=== PATIENT | male | born 1970 | race Caucasian/White ===

== ENCOUNTER 2017-02-06 04:10 | Emergency (ER) | payer MEDICARE, MEDICAID ==
[2017-02-06 06:13] LABS: ANION GAP 15 (5-19); BLOOD UREA NITROGEN 17 mg/dL (7-20); CALCIUM 9.3 mg/dL (8.4-10.2); CARBON DIOXIDE 24 mmol/L (22-30); CHLORIDE 108 mmol/L (98-107); GLUCOSE 109 mg/dL (75-110); POTASSIUM 3.8 mmol/L (3.6-5.0); SODIUM 146.9 mmol/L (137-145)
--- NOTE | 2017-02-06 07:51 | ER Document Report ---
ED General - General Chief Complaint: ETOH Abuse Stated Complaint: POSSIBLE INTOXICATION TRAVEL OUTSIDE OF THE [place] IN LAST 30 DAYS: No - HPI Patient complains to provider of: alcohol intoxication. Notes: Patient is coming in for acute alcohol intoxication. Patient was escorted to the ER by local law enforcement. Otherwise patient is resting comfortably upon my evaluation. Patient has no complaints at this time. Arousable ANO 3. Past Medical History - Social History Smoking Status: Current Every Day Smoker Chew tobacco use (# tins/day): No Frequency of alcohol use: Heavy Drug Abuse: None Family History: Reviewed & Not Pertinent Patient has suicidal ideation: No Patient has homicidal ideation: No Renal/ Medical History: Denies: Hx Peritoneal Dialysis Review of Systems - Review of Systems Constitutional: No symptoms reported EENT: No symptoms reported Cardiovascular: No symptoms reported Respiratory: No symptoms reported Gastrointestinal: No symptoms reported Genitourinary: No symptoms reported Male Genitourinary: No symptoms reported Musculoskeletal: No symptoms reported Skin: No symptoms reported Hematologic/Lymphatic: No symptoms reported Neurological/Psychological: No symptoms reported Physical Exam - Vital signs Vitals: Temp Pulse Resp BP Pulse Ox 97.5 F 56 L 18 155/90 H 99 02/06/17 04:23 02/06/17 04:23 02/06/17 04:23 02/06/17 04:23 02/06/17 04:23 Interpretation: Normal - General General appearance: Appears well, Alert - HEENT Head: Normocephalic, Atraumatic Eyes: Normal Pupils: PERRL - Respiratory Respiratory status: No respiratory distress Chest status: Nontender Breath sounds: Normal Chest palpation: Normal - Cardiovascular Rhythm: Regular Heart sounds: Normal auscultation Murmur: No - Abdominal Inspection: Normal Distension: No distension Bowel sounds: Normal Tenderness: Nontender Organomegaly: No organomegaly - Back Back: Normal, Nontender - Extremities General upper extremity: Normal inspection, Nontender, Normal color, Normal ROM , Normal temperature General lower extremity: Normal inspection, Nontender, Normal color, Normal ROM , Normal temperature, Normal weight bearing. No: Billy's sign - Neurological Neuro grossly intact: Yes Cognition: Normal Orientation: AAOx4 Joan Coma Scale Eye Opening: Spontaneous [place] Coma Scale Verbal: Oriented [place] Coma Scale Motor: Obeys Commands Joan Coma Scale Total: 15 Speech: Normal Motor strength normal: LUE, RUE, LLE, RLE Sensory: Normal - Psychological Associated symptoms: Normal affect, Normal mood - Skin Skin Temperature: Warm Skin Moisture: Dry Skin Color: Normal Course - Re-evaluation Re-evalutation: 02/06/17 15:07 Patient was apparently brought to the ER for acute alcohol intoxication. Currently this time patient is ANO 3 and appears to be clinically sober able to make medical decisions has no complaints will be discharged home - Vital Signs Vital signs: Temp Pulse Resp BP Pulse Ox 97 F L 59 L 18 150/93 H 99 02/06/17 07:57 02/06/17 07:57 02/06/17 07:57 02/06/17 07:57 02/06/17 07:57 - Laboratory Result Diagrams: 02/06/17 05:53 Laboratory results interpreted by me: 02/06/17 05:53 Sodium 146.9 H Chloride 108 H Discharge - Discharge Clinical Impression: Alcohol use Condition: Good Disposition: HOME, SELF-CARE Instructions: Alcohol Withdrawl ([facility]), Acute Alcohol Intoxication ([facility]), Chronic Alcoholism ([facility]) Additional Instructions: Follow-up with resources provided. Referrals: [facility] [Provider Group] - Follow up as needed
[2017-02-06 07:58] VITALS: BP 150/93
== END 2017-02-06 07:58 | disposition home or self-care (01) ==
LOC: ER 04:10
DX: F10.120 Alcohol abuse with intoxication, uncomplicated (principal); F17.200 Nicotine dependence, unspecified, uncomplicated
CPT/HCPCS: 36415; 80048; 99284

== ENCOUNTER → 2017-06-10 | Outpatient (CLI) | payer BC, MEDICARE, MEDICAID ==
[2017-06-10 09:19] LABS: ANION GAP 10 (5-19); BLOOD UREA NITROGEN 17 mg/dL (7-20); CALCIUM 9.7 mg/dL (8.4-10.2); CARBON DIOXIDE 29 mmol/L (22-30); CHLORIDE 102 mmol/L (98-107); GLUCOSE 101 mg/dL (75-110); MAGNESIUM 2.1 mg/dL (1.6-2.3); POTASSIUM 4.7 mmol/L (3.6-5.0); SODIUM 141.2 mmol/L (137-145)
[2017-06-10 10:32] LABS: HEMATOCRIT 46.3 % (37.9-51.0); HEMOGLOBIN 16.1 g/dL (13.5-17.0); MEAN CORPUSCULAR HEMOGLOBIN 31.1 pg (27.0-33.4); MEAN CORPUSCULAR HGB CONC 34.9 g/dL (32.0-36.0); MEAN CORPUSCULAR VOLUME 89 fl (80-97); RED CELL DISTRIBUTION WIDTH 13.5 % (11.5-14.0); WHITE BLOOD COUNT 8.3 10^3/uL (4.0-10.5)
[2017-06-10 10:37] LABS: ALANINE AMINOTRANSFERASE 26 U/L (21-72); ALBUMIN 4.2 g/dL (3.5-5.0); ALKALINE PHOSPHATASE 71 U/L (38-126); ASPARTATE AMINO TRANSFERASE 21 U/L (17-59); BILIRUBIN,DIRECT 0.3 mg/dL (0.0-0.4); BILIRUBIN,TOTAL 0.6 mg/dL (0.2-1.3); CHOLESTEROL 120.79 mg/dL (0-200); Direct HDL 41 mg/dL (>40); TOTAL PROTEIN 6.8 g/dL (6.3-8.2); TRIGLYCERIDES 63 mg/dL (<150)
[2017-06-10 10:48] LABS: DIRECT LDL 67 mg/dL (<100)
[2017-06-10 11:11] LABS: THYROID STIMULATING HORMONE 1.4 uIU/mL (0.47-4.68)
== END ==
LOC: OD 08:06
PROVIDERS: ATTEND Internal Medicine Cardiovascular Disease
DX: Z79.899 Other long term (current) drug therapy (principal); R00.1 Bradycardia, unspecified; E66.01 Morbid (severe) obesity due to excess calories; E55.9 Vitamin D deficiency, unspecified; I10 Essential (primary) hypertension
CPT/HCPCS: 36415; 80048; 80061; 80076; 82306; 83036; 83735; 84439; 84443; 85027

== ENCOUNTER → 2017-11-16 | Outpatient (CLI) | payer MEDICARE | LOC: OD 12:30 | PROVIDERS: ATTEND Otolaryngology | DX: J30.9 Allergic rhinitis, unspecified (principal) | CPT/HCPCS: 36415; 82785 ==

== ENCOUNTER → 2017-11-26 | Outpatient (CLI) | payer BC, MEDICARE ==
--- NOTE | 2017-11-26 14:07 | RADIOLOGY REPORT (SQ) ---
EXAM DESCRIPTION: CT SINUSES FOR ENT COMPLETED DATE/TIME: 11/26/2017 10:03 am REASON FOR STUDY: I70.29XA OTHER EFFECTS OF HIGH ALTITUDE, INITIAL ENCOUNTER T70.29XA OTHER EFFECTS OF HIGH ALTITUDE, INITIAL ENCOUNTER COMPARISON: None. TECHNIQUE: Noncontrast scanning through the paranasal sinuses using bone algorithm. Reconstructed MPR images reviewed. All images stored on PACS. Images acquired for image guided surgery. All CT scanners at this facility use dose modulation, iterative reconstruction, and/or weight based d osing when appropriate to reduce radiation dose to as low as reasonably achievable (ALARA). [facility]: Dose Right [facility]: CareDose [facility]: Dose Right [facility]: Teradose 4D [facility]: [place] RADIATION DOSE: 47 mGy. FINDINGS: NASAL PASSAGES: Clear. No polyps or masses. OSTEOMEATAL UNITS AND NASOFRONTAL DUCTS: Mucous membrane thickening bilateral maxillary outlets on co maggie images 96-108. MAXILLARY SINUSES: Well-pneumatized and clear. ETHMOID SINUSES: Well-pneumatized and clear. SPHENOID SINUSES: Well-pneumatized and clear. No sphenoethmoid air cells or pneumatized pterygoid rec ess. No pneumatized dorsal sella. FRONTAL SINUSES: Well-pneumatized and clear. There is mucous membrane thickening at the fronto ethmo id junctions bilaterally. Incidental finding of a 4.5 mm right frontal osteoma coronal image 98 MASTOID AIR CELLS: Mild right, moderate left mastoid air cell fluid. Minimal fluid in the left at th e tympanum between the ossicles and scutum. No bony erosions. On the right side, the middle ear is clear. ORBITS: Normal and symmetrical. NASAL SEPTUM: Minimal right nasal septal deviation No nasal septal spurs. TEMPOROMANDIBULAR JOINTS: Normal. TURBINATES: No pneumatized turbinates. MUCOCELE: No. OTHER: Brain parenchyma in the field of view is unremarkable. IMPRESSION: NO EVIDENCE OF ACUTE SINUSITIS. Mucous membrane thickening in the maxillary sinus outle ts and fronto ethmoid junctions bilaterally. TECHNICAL DOCUMENTATION: JOB ID: [id number] Quality ID # [id number]: Final reports with documentation of one or more dose reduction techniques (e.g., Au tomated exposure control, adjustment of the mA and/or kV according to patient size, use of iterative reconstruction technique) 2010 [employer]- All Rights Reserved
== END ==
LOC: RAD 09:45
PROVIDERS: ATTEND Otolaryngology
DX: T70.29XA Other effects of high altitude, initial encounter (principal); J30.9 Allergic rhinitis, unspecified
CPT/HCPCS: 70486

== ENCOUNTER 2018-01-04 09:00 | Day surgery (SDC) | payer BC, MEDICARE ==
--- NOTE | 2018-01-03 18:12 | EKG REPORT ---
SEVERITY:- BORDERLINE ECG - SINUS BRADYCARDIA POOR R WAVE PROGRESSION ANTERIOR PRECORDIAL LEADS.-/ LEAD PLACEMENT ERROR. : Confirmed by: Fawad Holder MD 03-Jan-2018 18:11:26
[~2018-01-04 09:00] MED LIST: BUPIVACAINE HCL 0.5%-EPI 1:200000 INJ/PF 30 ML VIAL ONE; CEFAZOLIN 2 GM/D5W RTU 2 GM/50 ML RTUPB IV PRN; LIDOCAINE 1%/EPINEPHRINE INJ 20 ML VIAL ONE; OXYMETAZOLINE HCL 0.05% NASAL SPRAY 15 ML BOTTLE ONE
[2018-01-04] MEDS ORDERED: MIDAZOLAM 2 MG/2 ML INJ ONE (11:10)
[2018-01-04] MEDS ORDERED: FENTANYL CITRATE INJ/PF 100 MCG/2 ML AMPUL ONE (11:10)
[2018-01-04] MEDS ORDERED: GLYCOPYRROLATE INJ 0.4 MG/2 ML VIAL ONE (11:11)
[2018-01-04] MEDS ORDERED: MORPHINE SULFATE 10 MG/ML INJ ONE (11:11)
[2018-01-04] MEDS ORDERED: ONDANSETRON HCL INJ/PF 4 MG/2 ML SDV ONE (11:11)
[2018-01-04] MEDS ORDERED: DEXAMETHASONE SOD PHOS INJ 10 MG/1 ML VIAL ONE (11:11)
[2018-01-04] MEDS ORDERED: PROPOFOL INJ 200 MG/20 ML VIAL IV ONE (11:12)
[2018-01-04] MEDS ORDERED: SUCCINYLCHOLINE CHLORIDE INJ 200 MG/10 ML VIAL ONE (11:12)
[2018-01-04] MEDS ORDERED: FAMOTIDINE INJ/PF 20 MG/2 ML SDV IV ONE (11:12)
[2018-01-04] MEDS ORDERED: ACETAMINOPHEN 100 ML IV ONE (12:17)
[2018-01-04] MEDS ORDERED: EPHEDRINE SULFATE INJ 50 MG/1 ML AMPULE ONE (12:34)
[2018-01-04] MEDS: WATER FOR INJECTION,STERILE 10 ML SDV ONE ×2 (14:33)
[2018-01-04] MEDS ORDERED: OXYCODONE-ACETAMINOPHEN 5-325 MG TABLET ONE (15:37)
--- NOTE | 2018-01-07 05:48 | SURGICARE OPERATIVE REPORT E ---
[facility] Operative Report NAME: JAMARCUS GUPTA AGE: 47Y DATE OF SURGERY: 01/04/2018 ROOM: PREOPERATIVE DIAGNOSIS: 1. Chronic recurrent sinusitis. 2. Chronic eustachian tube dysfunction. 3. Nasal septal deviation, acquired. 4. Bilateral inferior turbinate hypertrophy. 5. Bilateral middle turbinate hypertrophy. 6. Chronic nasal dyspnea. POSTOPERATIVE DIAGNOSIS: 1. Chronic recurrent sinusitis. 2. Chronic eustachian tube dysfunction. 3. Nasal septal deviation, acquired. 4. Bilateral inferior turbinate hypertrophy. 5. Bilateral middle turbinate hypertrophy. 6. Chronic nasal dyspnea. OPERATION: 1. Bilateral image guidance functional endoscopic sinus surgery. 2. Septoplasty. 3. Bilateral maxillary antrostomy with bilateral rigid transnasal surgical endoscopy. 4. Bilateral frontal sinus balloon sinuplasty with bilateral rigid transnasal diagnostic endoscopy. 5. Bilateral eustachian tube balloon plasty with bilateral rigid transnasal diagnostic endoscopy. 6. Bilateral inferior turbinate reduction using a submucous resection technique. 7. Bilateral middle turbinate reduction. SURGEON: JASBIR JEAN BAPTISTE D.O. ANESTHESIA: General endotracheal tube. ANESTHESIA STAFF: Alissa Lyles CRNA ESTIMATED BLOOD LOSS: 75 mL. IV FLUIDS: 1700 mL. COMPLICATIONS: None. DRAINS: None. SPONGE COUNT: Verified. NEEDLE COUNT: Verified. MATERIALS FORWARDED SPECIMEN: None. FINDINGS: 1. Nasal septal deviation involving bone and cartilage. 2. Mary flattening noted. 3. No sinonasal polyps or discharge noted. 4. Middle turbinate hypertrophy, left greater than right. 5. Bilateral inferior turbinate hypertrophy. 6. Preoperative saddle nose appearance with prominent nasal tip complex. INDICATIONS: This is a 47-year-old white male who was seen and evaluated in the [place] otolaryngology office. The patient had been referred for and he complained of a history of chronic eustachian tube dysfunction, chronic recurrent sinus disease/sinusitis, and chronic nasal dyspnea. The patient shared a history of recreational diving with numerous episodes consistent with middle ear barotrauma and occasional sinus barotrauma. There was CT sinus imaging obtained which was reviewed and discussed with the patient. There was clinic nasal endoscopy performed with findings as noted above. After extensive discussion with the patient, recommendation and plan was made to proceed with image guidance sinus surgery consisting of bilateral frontal sinus balloon sinuplasty, maxillary antrostomies, balloon eustachian tube plasty, septoplasty, inferior turbinate reduction, and middle turbinate reduction. The procedures and all of their risks and complications were all discussed in detail with the patient. He voiced an understanding of the described surgical plan, agreed to proceed, and consent was obtained. PROCEDURE: The patient was taken to the main operating room and placed on the operating room table in the supine position. Appropriate monitors were placed. Using mask and IV access, general anesthesia was induced. The patient was next transorally intubated without difficulty. The patient underwent a nasal examination with injection of local anesthetic with epinephrine to establish a nasal block. The patient had 2 Afrin-soaked neuro patties placed per nasal passage. The patient was then positioned and prepped and draped for nasal and sinus surgery. The image guidance system was set up and tested appropriately before beginning the case. The patient next underwent a hemitransfixion incision with elevation of the mucoperichondrial and periosteal flaps without difficulty. The bony cartilaginous junction was identified and divided with the most deviated portions of septal cartilage and bone removed. At this point, attention was then turned to the inferior turbinate. At this point, the inferior turbinate reduction on each side was addressed in the following fashion. The coblation wand was used to make 2 passes on each side followed by use of the [place] elevator to outfracture each inferior turbinate. Next, the anterior aspect was entered with a pair of [place] scissors followed by elevation of tissue in the submucosal plane with a [place] elevator. Next, the turbinate microdebrider system at a setting of 1500 rpm was used to perform a submucous resection on each side. There was prominent turbinate bone removed on each side, approximately 1 cm in length. At this point, excessive mucosa was trimmed with mucosal margins reapproximated with Chromic suture. At this point, the image guidance functional endoscopic sinus surgery was addressed in the following manner. There was bilateral transnasal diagnostic and surgical endoscopy performed throughout the case. The middle turbinate resection was addressed with through-cutting instruments and the turbinate microdebrider system at a setting of 3000 rpm to address the anterior aspect of each middle turbinate. At this point, the frontal sinus balloon sinuplasty system was introduced with the balloon inflated at 3 positions on each side to 12 atmospheres. The frontal sinus balloon sinuplasty system was withdrawn. Next, the maxillary antrostomies were performed without difficulty with through-cutting instruments and the microdebrider system. Findings were as noted above. At this point the nose was thoroughly irrigated with normal saline and suctioned. There was adequate hemostasis noted. The previously removed septal cartilage was placed back between the mucosal flaps to be banked. Stammberger sinus gel was placed on each side between the maxillary antrostomy and the middle turbinate. The patient next had 1 Manning silicone nasal splint with Bacitracin ointment placed per side and these were secured at the caudal aspect with 4-0 chromic suture. At this point, the patient's nose was cleaned and dried. He was returned to the anesthesia staff and allowed to emerge from general anesthesia. The patient was extubated in the main operating room without difficulty and was then transported to the post anesthesia recovery unit in stable condition. There were no complications. *------* At this point, the 0-degree rigid endoscope was used in the diagnostic fashion bilateral to allow for the eustachian tube balloon plasty system to be introduced on each side. The eustachian tube balloon was inserted into each eustachian tube complex without difficulty. The balloon was inflated in 2 positions on each side to a setting of 12 atmospheres and held in position for 2 minutes each time. Once we placed the eustachian tube balloon plasty system was withdrawn from the nose. *------* DICTATING PHYSICIAN: JASBIR JEAN BAPTISTE D.O. [id number] Y#: [id number] 2013 ID: [id number] JOB#: [id number] ACCT: [id number] cc:JASBIR JEAN BAPTISTE D.O. >
== END 2018-01-04 16:15 | disposition home or self-care (01) ==
LOC: SC 09:00
PROVIDERS: ATTEND Otolaryngology
PROC: 099R4ZZ Drainage of Left Maxillary Sinus, Percutaneous Endoscopic Approach (ICD-10-PCS; 2018-01-04)
PROC: 099Q4ZZ Drainage of Right Maxillary Sinus, Percutaneous Endoscopic Approach (ICD-10-PCS; 2018-01-04)
PROC: 09TL8ZZ Resection of Nasal Turbinate, Via Natural or Artificial Opening Endoscopic (ICD-10-PCS; 2018-01-04)
PROC: 09BM4ZZ Excision of Nasal Septum, Percutaneous Endoscopic Approach (ICD-10-PCS; principal; 2018-01-04 10:15)
DX: T70.29XA Other effects of high altitude, initial encounter (principal); J32.9 Chronic sinusitis, unspecified; H69.83 Other specified disorders of Eustachian tube, bilateral; J34.89 Other specified disorders of nose and nasal sinuses; J30.9 Allergic rhinitis, unspecified; R06.09 Other forms of dyspnea; F17.210 Nicotine dependence, cigarettes, uncomplicated; I10 Essential (primary) hypertension; G47.30 Sleep apnea, unspecified; Z79.899 Other long term (current) drug therapy
CPT/HCPCS: 93005; 93010; 30520; 31256; 30140; 31296; 69421; J2250; J3490 ×4; J3010; J0330; J2405; J2704; S0028; J1100; J0690; J0131; 160; J2270

== ENCOUNTER 2019-01-18 17:09 | Inpatient (IN) | payer BC, MEDICARE ==
--- NOTE | 2019-01-18 17:34 | RADIOLOGY REPORT (SQ) ---
EXAM DESCRIPTION: CT HEAD WITHOUT COMPLETED DATE/TIME: 01/18/2019 5:25 pm REASON FOR STUDY: ams COMPARISON: None. TECHNIQUE: Axial images acquired through the brain without intravenous contrast. Images reviewed wi th bone, brain and subdural windows. Additional sagittal and coronal reconstructions were generated. Images stored on PACS. All CT scanners at this facility use dose modulation, iterative reconstruction, and/or weight based d osing when appropriate to reduce radiation dose to as low as reasonably achievable (ALARA). [facility]: Dose Right [facility]: CareDose [facility]: Dose Right [facility]: Teradose 4D [facility]: [employer] RADIATION DOSE: CT Rad equipment meets quality standard of care and radiation dose reduction techniq ues were employed. CTDIvol: 48.7 mGy. DLP: 952 mGy-cm. mGy. LIMITATIONS: None. FINDINGS: VENTRICLES: Normal size and contour. CEREBRUM: No masses. No hemorrhage. No midline shift. No evidence for acute infarction. Normal gra y/white matter differentiation. No areas of low density in the white matter. CEREBELLUM: No masses. No hemorrhage. No alteration of density. No evidence for acute infarction. EXTRAAXIAL SPACES: No fluid collections. No masses. ORBITS AND GLOBE: No intra- or extraconal masses. Normal contour of globe without masses. CALVARIUM: No fracture. PARANASAL SINUSES: No fluid or mucosal thickening. SOFT TISSUES: No mass or hematoma. OTHER: No other significant finding. IMPRESSION: NORMAL BRAIN CT WITHOUT CONTRAST. EVIDENCE OF ACUTE STROKE: NO. COMMENT: Quality ID # 436: Final reports with documentation of one or more dose reduction techniques (e.g., Automated exposure control, adjustment of the mA and/or kV according to patient size, use of iterative reconstruction technique) TECHNICAL DOCUMENTATION: JOB ID: [id number] [employer]- All Rights Reserved Reading location - IP/workstation name: [email or web address]
--- NOTE | 2019-01-18 17:38 | ER Document Report ---
ED General - General Stated Complaint: ALTERED MENTAL STATUS Time Seen by Provider: 01/18/19 17:13 Mode of Arrival: Medic Information source: Relative, [facility] Records Cannot obtain history due to: Altered mental status Notes: 48-year-old male with hypertension, hyponatremia, alcoholism, bipolar disorder, OCD, remote history of cocaine abuse presents via EMS from home after his found him confused, altered and stuttering his speech. Patient was last known well at 11 AM 6 hours prior to arrival. states that she left the house at 11 AM and when she called later in the afternoon the patient was stuttering his speech. She states when she arrived home the patient was sitting in the garage smoking a cigarette repeating the #95, 95. Patient was sober from alcohol use for approximately 2 years but relapsed recently. states that she did find a yet E cup that had whiskey in it. Patient was recently in [place] for diving and was there for approximately 2 months which is when the believes he relapsed. TRAVEL OUTSIDE OF THE [place] IN LAST 30 DAYS: No - HPI Onset: Other Onset/Duration: Sudden Similar symptoms previously: No - Related Data Allergies/Adverse Reactions: No Known Allergies Allergy (Verified 01/18/19 19:53) Past Medical History - General Information source: Relative, [facility] Records - Social History Smoking Status: Current Every Day Smoker Cigarette use (# per day): Yes - 20 Frequency of alcohol use: Heavy Drug Abuse: Cocaine - Reported remote history Family History: Reviewed & Not Pertinent - Past Medical History Cardiac Medical History: Reports: Hx Hypertension - MEDICATED Denies: Hx Heart Attack Pulmonary Medical History: Denies: Hx Asthma Neurological Medical History: Denies: Hx Cerebrovascular Accident, Hx Seizures Renal/ Medical History: Denies: Hx Peritoneal Dialysis GI Medical History: Denies: Hx Hepatitis, Hx Hiatal Hernia, Hx Ulcer Infectious Medical History: Denies: Hx Hepatitis Past Surgical History: Denies: Hx Open Heart Surgery, Hx Pacemaker Review of Systems - Review of Systems -: Yes ROS unobtainable due to patient's medical condition Physical Exam - Vital signs Vitals: Pulse Ox 98 01/18/19 17:45 - Notes Notes: PHYSICAL EXAMINATION: GENERAL: Alert, awake, perseverating HEAD: Atraumatic, normocephalic. EYES: Pupils equal round and reactive to light, extraocular movements intact, sclera anicteric, conjunctiva are normal. ENT: Nares patent, oropharynx clear without exudates. Moist mucous membranes. NECK: Normal range of motion, supple without lymphadenopathy LUNGS: Breath sounds clear to auscultation bilaterally and equal. No wheezes rales or rhonchi. HEART: Regular rate and rhythm without murmurs ABDOMEN: Soft, nontender, nondistended abdomen. No guarding, no rebound. No masses appreciated. Musculoskeletal: Normal range of motion, no pitting or edema. No cyanosis. NEUROLOGICAL: Cranial nerves grossly intact. normal gait. Normal sensory, motor exams. Patient has a aphasia, dysarthria, confusion and an NIH of 3. PSYCH: Normal mood, normal affect. SKIN: Warm, Dry, normal turgor, no rashes or lesions noted. Course - Re-evaluation Re-evalutation: Laboratory 01/18/19 01/18/19 01/18/19 17:00 17:20 17:20 WBC 8.0 RBC 4.62 Hgb 13.7 Hct 40.0 MCV 87 MCH 29.7 MCHC 34.3 RDW 14.8 H Plt Count 220 Seg Neutrophils % 65.9 Lymphocytes % 26.0 Monocytes % 6.5 Eosinophils % 1.0 Basophils % 0.6 Absolute Neutrophils 5.3 Absolute Lymphocytes 2.1 Absolute Monocytes 0.5 Absolute Eosinophils 0.1 Absolute Basophils 0.0 PT Cancelled INR Cancelled APTT Cancelled Sodium Potassium Chloride Carbon Dioxide Anion Gap BUN Creatinine Est GFR ( Amer) Est GFR (Non-Af Amer) Glucose POC Glucose Calcium Total Bilirubin Direct Bilirubin Neonat Total Bilirubin Neonat Direct Bilirubin Neonat Indirect Bili AST ALT Alkaline Phosphatase Creatine Kinase CK-MB (CK-2) Troponin I Total Protein Albumin Salicylates Urine Opiates Screen NEGATIVE Urine Methadone Screen NEGATIVE Acetaminophen Ur Barbiturates Screen NEGATIVE Ur Phencyclidine Scrn NEGATIVE Ur Amphetamines Screen NEGATIVE U Benzodiazepines Scrn NEGATIVE Urine Cocaine Screen NEGATIVE U Marijuana (THC) Screen NEGATIVE Serum Alcohol 01/18/19 01/18/19 01/18/19 17:20 17:20 17:46 WBC RBC Hgb Hct MCV MCH MCHC RDW Plt Count Seg Neutrophils % Lymphocytes % Monocytes % Eosinophils % Basophils % Absolute Neutrophils Absolute Lymphocytes Absolute Monocytes Absolute Eosinophils Absolute Basophils PT INR APTT Sodium Cancelled Potassium Cancelled Chloride Cancelled Carbon Dioxide Cancelled Anion Gap Cancelled BUN Cancelled Creatinine Cancelled Est GFR ( Amer) Cancelled Est GFR (Non-Af Amer) Cancelled Glucose Cancelled POC Glucose 107 Calcium Cancelled Total Bilirubin Cancelled Direct Bilirubin Cancelled Neonat Total Bilirubin Cancelled Neonat Direct Bilirubin Cancelled Neonat Indirect Bili Cancelled AST Cancelled ALT Cancelled Alkaline Phosphatase Cancelled Creatine Kinase Cancelled CK-MB (CK-2) 1.17 Troponin I 0.015 Total Protein Cancelled Albumin Cancelled Salicylates Urine Opiates Screen Urine Methadone Screen Acetaminophen Ur Barbiturates Screen Ur Phencyclidine Scrn Ur Amphetamines Screen U Benzodiazepines Scrn Urine Cocaine Screen U Marijuana (THC) Screen Serum Alcohol Cancelled 01/18/19 01/18/19 01/18/19 17:50 18:56 18:56 WBC RBC Hgb Hct MCV MCH MCHC RDW Plt Count Seg Neutrophils % Lymphocytes % Monocytes % Eosinophils % Basophils % Absolute Neutrophils Absolute Lymphocytes Absolute Monocytes Absolute Eosinophils Absolute Basophils PT 13.9 INR 1.02 APTT 31.6 Sodium 132.9 L Potassium 4.0 Chloride 97 L Carbon Dioxide 23 Anion Gap 13 BUN 9 Creatinine 0.87 Est GFR ( Amer) > 60 Est GFR (Non-Af Amer) > 60 Glucose 98 POC Glucose Calcium 9.6 Total Bilirubin 0.5 Direct Bilirubin 0.3 Neonat Total Bilirubin Not Reportable Neonat Direct Bilirubin Not Reportable Neonat Indirect Bili Not Reportable AST 25 ALT 22 Alkaline Phosphatase 76 Creatine Kinase 100 CK-MB (CK-2) Troponin I Total Protein 6.7 Albumin 4.3 Salicylates < 1.0 L Urine Opiates Screen Urine Methadone Screen Acetaminophen < 10 L Ur Barbiturates Screen Ur Phencyclidine Scrn Ur Amphetamines Screen U Benzodiazepines Scrn Urine Cocaine Screen U Marijuana (THC) Screen Serum Alcohol 76 Chest/Abdomen CTA 01/18/19 00:00 IMPRESSION: Mild bronchial wall thickening centrally and mild interstitial th ickening. Mild reactive appearing hilar and mediastinal nodes. No evidence for pulmonary arterial emboli or aortic dissection. New 2 cm low-density right adrenal nodule.. Head CT 01/18/19 17:13 IMPRESSION: NORMAL BRAIN CT WITHOUT CONTRAST. EVIDENCE OF ACUTE STROKE: NO. Head CTA 01/18/19 17:13 IMPRESSION: No evidence for dissection or significant stenosis in the head or neck. Neck CTA 01/18/19 17:13 IMPRESSION: No evidence for dissection or significant stenosis in the head or neck. Temp Pulse Resp BP Pulse Ox 98.9 F 51 L 15 164/88 H 100 01/18/19 17:46 01/18/19 17:52 01/18/19 20:01 01/18/19 20:01 01/18/19 20:01 01/18/19 17:46 NIH 3 for aphasia, dysarthria and inability to tell me the month, year. Admits to alcohol use today. Patient stands with a steady gait to urinate. 01/18/19 20:49 48-year-old male presents via EMS altered after his found him sitting in h is garage smoking a cigarette and repeating the 95, 95. 95. reports that the patient was confused, unable to answer her questions and she immediately called EMS. reports that she left the patient at 11 AM which is his last known well. Patient arrived at 5 PM with an unclear onset of symptoms. Vital signs reviewed and patient is hypertensive, afebrile mild bradycardia which reports is his baseline. Patient does have an extensive psychiatric history and is on multiple psychiatric medications (list attached to chart). He also has a history of alcoholism and cocaine abuse. reports that he had been sober from alcohol for approximately 2 years until he went to [place] recently. She denies any recent illness, coughing, vomiting, diarrhea, fever. She did state that she found a yet he cupful of Efrain Beam but after living with the patient for 20 years she states that this is not how he normally acts when he is intoxicated. NIH was performed immediately upon arrival and patient scored 3 for confusion, dysarthria, aphasia. CT of the head, CTA of the head and neck w ere unremarkable. Patient was reevaluated multiple times and remains confused. Patient has been accepted to the hospitalist Dr. Conte. MRI was ordered and pending. Home medications Lisinopril 20 mg daily, fluoxetine 80 mg daily, clonidine 0.1 mg daily, atorvastatin 20 mg daily Strattera 100 mg, tamsulosin 0.4 mg, Cialis 5 mg, Trileptal 600 mg, amlodipine 10 mg, - Vital Signs Vital signs: Temp Pulse Resp BP Pulse Ox 98.9 F 51 L 19 171/87 H 100 01/18/19 17:46 01/18/19 21:00 01/18/19 21:01 01/18/19 21:01 01/18/19 21:01 - Laboratory Result Diagrams: 01/18/19 17:20 01/18/19 18:56 Laboratory results interpreted by me: 01/18/19 01/18/19 01/18/19 17:20 18:56 18:56 RDW 14.8 H Sodium 132.9 L Chloride 97 L Salicylates < 1.0 L Acetaminophen < 10 L - Diagnostic Test Radiology reviewed: Image reviewed, Reports reviewed - EKG Interpretation by Me EKG shows normal: Sinus rhythm Rate: Normal Rhythm: NSR Critical Care Note - Critical Care Note Total time excluding time spent on procedures (mins): 40 - Minutes of critical care time spent in direct contact evaluating and reevaluating the patient, treating symptoms, reviewing labs and studies and speaking with family and consultants excluding any procedures Discharge - Discharge Clinical Impression: Elevated blood pressure reading, Stroke-like symptoms, Acute CVA (cerebrovascular accident), Alcohol abuse, Tobacco dependence due to cigarettes, Aphasia Altered mental status Qualifiers: Altered mental status type: disorientation Qualified Code(s): R41.0 - Disorientation, unspecified Hypertension Qualifiers: Hypertension type: essential hypertension Qualified Code(s): I10 - Essential (primary) hypertension Condition: Good Disposition: ADMITTED INPATIENT Admitting Provider: Hospitalist Unit Admitted: [facility] ED NIH Stroke Scale - NIH Stroke Scale *: 1. NIH scale should be completed with appropriate accompanying assessment tools. *: 2. The NIH should reflect what the patient is capable of doing and should not be coached by the clinician. 1a. Level of Consciousness: 0=Alert;keenly responsive -: 1=Drowsy -: 2=Obtunded -: 3=Coma/unresponsive or reflex to noxious stimuli. 1a. Responses: 0 1b. Orientation Questions: a. What month is it? -: b. How old are you? -: 0=Answers both questions correctly. -: 1=Answers one question correctly or patient is intubated or has orotracheal trauma. -: 2=Answers neither question correctly. 1b. Responses: 1 1c. Response to commands: a. Open and close eyes? -: b. Employee Wellness/Fitness Coordinator and release hand? -: Credit is given despite weakness. Demonstration of task is permitted. Substit mariel command if hands cannot be used. -: 0=Performs both tasks correctly -: 1=Performs one task correctly -: 2=Performs neither task correctly 1c. Responses: 0 2. Gaze: Establish eye contact and instruct patient to "Follow my finger" -: 0=Normal -: 1=Partial gaze palsy. Gaze is abnormal in one or both eyes, but where forced deviation or total gaze paresis is not present. -: 2=Forced deviation or total gaze paresis. 2. Responses: 0 3. Visual Kang: Sees fingers in all four quadrants. -: 0=No visual loss. -: 1=Partial hemianopsia. -: 2=Complete hemianopsia. -: 3=Bilateral hemianopsia (including Cortical blindness) 3. Responses: 0 4. Facial Movement: Instruct patient to: -: a. Show me your teeth -: b. Raise your eyebrows -: c. Close your eyes -: d. Smile -: 0=Normal symmetrical movement -: 1=Minor paralysis (flattened nasolabial fold, asymmetry on smiling). -: 2=Partial paralysis (total or near total paralysis of lower face). -: 3=Complete paralysis of upper and lower face 4. Responses: 0 5. Motor functions (left arm): Alternate sides and extend each arm with palms down (90 degrees if sitting or 45 degrees for supine). -: 0=No drift;limb holds for full 10 seconds. -: 1=Drift; limb holds but drifts down before full 10 seconds, but does not hit bed. -: 2=Some effort against gravity; limb cannot get to or maintain position. -: 3=No effort against gravity; limb falls. -: 4=No movement. -: UN=Amputation, joint fusion, explain in comments. 5. Responses (left arm): 0 5. Motor Functions (right arm): Alternate sides and extend each arm with palms down (90 degrees if sitting or 45 degrees for supine). -: 0=No drift;limb holds for full 10 seconds. -: 1=Drift; limb holds but drifts down before full 10 seconds, but does not hit bed. -: 2=Some effort against gravity; limb cannot get to or maintain position. -: 3=No effort against gravity; limb falls. -: 4=No movement. -: UN=Amputation, joint fusion, explain in comments. 5. Responses (right arm): 0 6. Motor Functions (left leg): With patient lying supine, alternate sides and extend each leg (30 degrees always while supine). -: 0=No drift, leg holds position for full 5 seconds -: 1=Drift; leg falls before full 5 seconds but does not hit bed. -: 2=Some effort against gravity, leg falls to bed but some effort against gravity. -: 3=No effort against gravity, leg falls to bed immediately. -: 4=No movement. -: UN=Amputation, joint fusion; explain in comments. 6. Responses (left leg): 0 6. Motor Functions (right leg): With patient lying supine, alternate sides and extend each leg (30 degrees always while supine). -: 0=No drift, leg holds position for full 5 seconds -: 1=Drift; leg falls before full 5 seconds but does not hit bed. -: 2=Some effort against gravity, leg falls to bed but some effort against gravity. -: 3=No effort against gravity, leg falls to bed immediately. -: 4=No movement. -: UN=Amputation, joint fusion; explain in comments. 6. Responses (right leg): 0 7. Limb Ataxia: With eyes open instruct patient to: -: a. "Touch your finger to your nose". -: b. "Touch your heel to your morrison" -: 0=Absent -: 1=Present in one limb. -: 2=Present in two limbs. -: UN=Amputation or joint fusion; explain in comments. 7. Responses: 0 8. Sensory: Test sensation using pinprick or noxious stimuli. Test as many body parts as possible. -: 0=Normal;no sensory loss -: 1=Mile to moderate sensory loss (patient feels pin prick but is less sharp on affected side). -: 2=Severe or total sensory loss. 8. Responses: 0 9. Best Language: Instruct patient to: -: a. "Describe what you see in this picture." -: b. "Name the items in this picture." -: c. "Read these sentences." -: 0=No aphasia, normal -: 1=Mild to moderate aphasia. -: 2=Severe aphasia -: 3=Mute, global aphasia, no usable speech or auditory comprehension. 9. Responses: 1 10. Articulation, Dysarthia: Instruct patient to: -: "Read these words" or "Repeat these words" -: 0=Normal -: 1=Mild to moderate; patient may slur some words but can be understood without difficulty. -: 2=Severe; patients speech so slurred as to be unintelligible in the absence of dysphasia. -: UN=Intubated or other physical barrier, explain in comments. 10. Responses: 1 11. Extinction or inattention: 0=No abnormality -: 1= Visual, tactile, auditory, spatial, or personal inattention or extinction to bilateral simulation in one or the sensory modalities. -: 2=Profound jim-inattention or jim-inattention to more than one modality; does not recognize own hand. Total Score: 3
[2019-01-18 17:46] LABS: ABSOLUTE EOSINOPHILS # (AUTO) 0.1 10^3/uL (0.0-0.6); ABSOLUTE LYMPHOCYTES (AUTO) 2.1 10^3/uL (0.5-4.7); ABSOLUTE MONOCYTES (AUTO) 0.5 10^3/uL (0.1-1.4); ABSOLUTE NEUT (AUTO) 5.3 10^3/uL (1.7-8.2); BASOPHILS % (AUTO) 0.6 % (0-2); HEMOGLOBIN 13.7 g/dL (13.5-17.0); MEAN CORPUSCULAR HEMOGLOBIN 29.7 pg (27.0-33.4); MEAN CORPUSCULAR HGB CONC 34.3 g/dL (32.0-36.0); MEAN CORPUSCULAR VOLUME 87 fl (80-97); MONOCYTES % (AUTO) 6.5 % (3-13); PLATELET COUNT 220 10^3/uL (150-450); RED BLOOD COUNT 4.62 10^6/uL (4.35-5.55); RED CELL DISTRIBUTION WIDTH 14.8 % (11.5-14.0); SEGMENTED NEUTROPHILS % (AUTO) 65.9 % (42-78); TOTAL CELLS COUNTED % (AUTO) 100 %
[2019-01-18 18:04] LABS: INTERNATIONAL RATION (INR) 1.02; PROTHROMBIN TIME 13.9 SEC (11.4-15.4)
[2019-01-18 18:05] LABS: PARTIAL THROMBOPLASTIN TIME 31.6 SEC (23.5-35.8)
[2019-01-18 18:21] LABS: CREATINE KINASE MB 1.17 ng/mL (<4.55); TROPONIN I 0.015 ng/mL
--- NOTE | 2019-01-18 19:07 | RADIOLOGY REPORT (SQ) ---
EXAM DESCRIPTION: CTA HEAD; CTA NECK COMPLETED DATE/TIME: 01/18/2019 6:42 pm; 01/18/2019 6:41 pm REASON FOR STUDY: ams COMPARISON: None. TECHNIQUE: Post IV contrast scanning, thin section axial imaging through the head and neck to evalua te the arterial structures. Source and MIP images are saved and reviewed on PACS. Advanced 3D imaging as volume-rendering, MIPs, SSD performed? yes All CT scanners at this facility use dose modulation, iterative reconstruction, and/or weight based d osing when appropriate to reduce radiation dose to as low as reasonably achievable (ALARA). [facility]: Dose Right [facility]: CareDose [facility]: Dose Right [facility]: Teradose 4D [facility]: [employer] CONTRAST TYPE AND DOSE: contrast/concentration: Isovue mg/ml; Total Contrast Delivered: 99.0 ml; To caitlin Saline Delivered: 75.0 ml RENAL FUNCTION: Not obtained due to severity of the patient's condition LIMITATIONS: None. FINDINGS: [place]: The anterior, middle, posterior cerebral arteries are all patent. No ev idence of aneurysm or focal stenosis. POSTERIOR CIRCULATION: The distal vertebral arteries are patent as is the basilar artery. No aneurysm . BRAIN: No gross enhancing lesions as visualized. The superior cerebral hemispheres are not included in the field of view. BONES: Intact as visualized. SINUSES: No fluid or mucosal thickening. Neck: No evidence for carotid dissection or significant plaque-stenosis. Left dominant vertebrobasil ar system. IMPRESSION: No evidence for dissection or significant stenosis in the head or neck. TECHNICAL DOCUMENTATION: JOB ID: [id number] [place]-72 Quality ID # 436: Final reports with documentation of one or more dose reduction techniques (e.g., Au tomated exposure control, adjustment of the mA and/or kV according to patient size, use of iterative reconstruction technique) 2010 [employer]- All Rights Reserved Reading location - IP/workstation name: [email or web address]
--- NOTE | 2019-01-18 19:07 | RADIOLOGY REPORT (SQ) ---
EXAM DESCRIPTION: CTA HEAD; CTA NECK COMPLETED DATE/TIME: 01/18/2019 6:42 pm; 01/18/2019 6:41 pm REASON FOR STUDY: ams COMPARISON: None. TECHNIQUE: Post IV contrast scanning, thin section axial imaging through the head and neck to evalua te the arterial structures. Source and MIP images are saved and reviewed on PACS. Advanced 3D imaging as volume-rendering, MIPs, SSD performed? yes All CT scanners at this facility use dose modulation, iterative reconstruction, and/or weight based d osing when appropriate to reduce radiation dose to as low as reasonably achievable (ALARA). [facility]: Dose Right [facility]: CareDose [facility]: Dose Right [facility]: Teradose 4D [facility]: [employer] CONTRAST TYPE AND DOSE: contrast/concentration: Isovue mg/ml; Total Contrast Delivered: 99.0 ml; To caitlin Saline Delivered: 75.0 ml RENAL FUNCTION: Not obtained due to severity of the patient's condition LIMITATIONS: None. FINDINGS: [place]: The anterior, middle, posterior cerebral arteries are all patent. No ev idence of aneurysm or focal stenosis. POSTERIOR CIRCULATION: The distal vertebral arteries are patent as is the basilar artery. No aneurysm . BRAIN: No gross enhancing lesions as visualized. The superior cerebral hemispheres are not included in the field of view. BONES: Intact as visualized. SINUSES: No fluid or mucosal thickening. Neck: No evidence for carotid dissection or significant plaque-stenosis. Left dominant vertebrobasil ar system. IMPRESSION: No evidence for dissection or significant stenosis in the head or neck. TECHNICAL DOCUMENTATION: JOB ID: [id number] [place]-72 Quality ID # [id number]: Final reports with documentation of one or more dose reduction techniques (e.g., Au tomated exposure control, adjustment of the mA and/or kV according to patient size, use of iterative reconstruction technique) 2010 [employer]- All Rights Reserved Reading location - IP/workstation name: [email or web address]
--- NOTE | 2019-01-18 19:15 | RADIOLOGY REPORT (SQ) ---
EXAM DESCRIPTION: CTA CHEST COMPLETED DATE/TIME: 01/18/2019 6:42 pm REASON FOR STUDY: CHEST PAIN COMPARISON: 09/29/2012 TECHNIQUE: CT scan of the chest performed using helical scanning technique with dynamic intravenous contrast injection. Images reviewed with lung, soft tissue and bone windows. Reconstructed coronal and sagittal MPR images reviewed. Additional 3 dimensional post-processing performed to develop Maximal Intensity Projection images (ID P). All images stored on PACS. All CT scanners at this facility use dose modulation, iterative reconstruction, and/or weight based d osing when appropriate to reduce radiation dose to as low as reasonably achievable (ALARA). [facility]: Dose Right [facility]: CareDose [facility]: Dose Right [facility]: Teradose 4D [facility]: [employer] CONTRAST TYPE AND DOSE: Contrast bolus optimized for the pulmonary arteries. Not diagnostic for the aorta. RENAL FUNCTION: Not obtained due to the severity of patient condition RADIATION DOSE: . LIMITATIONS: None. FINDINGS: LUNGS AND PLEURA: Mild bronchial wall thickening centrally and mild interstitial thickenin g. Minimal No masses, consolidation, or pneumothorax. No pleural effusions or pleural calcification s. AORTA AND GREAT VESSELS: No aneurysm. Contrast bolus not optimized for the aorta. HEART: No pericardial effusion. Mild coronary artery calcifications. PULMONARY ARTERIES: No emboli visualized in the main pulmonary arteries or the segmental branches. HILAR AND MEDIASTINAL STRUCTURES: Mild reactive appearing hilar and mediastinal nodes. HARDWARE: None in the chest. UPPER ABDOMEN: New 2 cm low-density right adrenal nodule. Limited exam. THYROID AND OTHER SOFT TISSUES: No masses. No adenopathy. BONES: No acute or significant finding. 3D MIPS: Confirm above findings. OTHER: No other significant finding. IMPRESSION: Mild bronchial wall thickening centrally and mild interstitial thickening. Mild reactive appearing hilar and mediastinal nodes. No evidence for pulmonary arterial emboli or aortic dissecti on. New 2 cm low-density right adrenal nodule.. COMMENT: Quality ID # [id number]: Final reports with documentation of one or more dose reduction techniques (e.g., Automated exposure control, adjustment of the mA and/or kV according to patient size, use of iterative reconstruction technique) TECHNICAL DOCUMENTATION: JOB ID: [id number] [place]-72 2010 [employer]- All Rights Reserved Reading location - IP/workstation name: [email or web address]
--- NOTE | 2019-01-18 19:18 | EKG REPORT ---
SEVERITY:- ABNORMAL ECG - SINUS RHYTHM ABNRM R PROG, CONSIDER ASMI OR LEAD PLACEMENT : Confirmed by: Rhianna Cat MD 18-Jan-2019 19:16:59
[2019-01-18 19:23] LABS: ALANINE AMINOTRANSFERASE 22 U/L (21-72); ALBUMIN 4.3 g/dL (3.5-5.0); ALCOHOL 76 mg/dL (NONE DETECTED); ALKALINE PHOSPHATASE 76 U/L (38-126); ANION GAP 13 (5-19); ASPARTATE AMINO TRANSFERASE 25 U/L (17-59); BILIRUBIN,DIRECT 0.3 mg/dL (0.0-0.4); BILIRUBIN,TOTAL 0.5 mg/dL (0.2-1.3); BLOOD UREA NITROGEN 9 mg/dL (7-20); CALCIUM 9.6 mg/dL (8.4-10.2); CARBON DIOXIDE 23 mmol/L (22-30); CHLORIDE 97 mmol/L (98-107); CREATINE KINASE 100 U/L (55-170); GLUCOSE 98 mg/dL (75-110); SODIUM 132.9 mmol/L (137-145); TOTAL PROTEIN 6.7 g/dL (6.3-8.2)
[2019-01-18 19:36] LABS: URINE AMPHETAMINES SCREEN NEGATIVE; URINE BARBITURATES SCREEN NEGATIVE; URINE BENZODIAZEPINES SCREEN NEGATIVE; URINE COCAINE SCREEN NEGATIVE; URINE MARIJUANA (THC) SCREEN NEGATIVE; URINE METHADONE SCREEN NEGATIVE; URINE PHENCYCLIDINE SCREEN NEGATIVE
[2019-01-18] MEDS ORDERED: RINGERS SOLUTION,LACTATED 1,000 ML IV ONE (19:36)
[2019-01-18] MEDS ORDERED: ASPIRIN 81 MG TABLET, CHEWABLE PO ONE (19:41)
[2019-01-18] MEDS ORDERED: ASPIRIN 81 MG TABLET, CHEWABLE ONE (19:42)
[2019-01-18 19:56] LABS: ACETAMINOPHEN < 10 ug/mL (10-30); SALICYLATE < 1.0 mg/dL (2.0-20.0)
[2019-01-18] MEDS ORDERED: DOCUSATE SODIUM 100 MG CAPSULE PO PRN (20:12)
[2019-01-18] MEDS ORDERED: ONDANSETRON HCL INJ/PF 4 MG/2 ML SDV IV PRN (20:12)
[2019-01-18] MEDS ORDERED: ONDANSETRON 4 MG TAB.RAPDIS PO PRN (20:12)
[2019-01-18] MEDS ORDERED: TEMAZEPAM 15 MG CAPSULE PO PRN (20:12)
[2019-01-18] MEDS ORDERED: MAGNESIUM HYDROXIDE SUSP 30 ML UDCUP PO PRN (20:12)
[2019-01-18] MEDS ORDERED: HYDRALAZINE HCL INJ/PF 20 MG/1 ML SDV IV PRN (20:20)
[2019-01-18] MEDS ORDERED: NALBUPHINE HCL INJ 10 MG/1 ML AMPULE IV PRN (20:20)
[2019-01-18] MEDS ORDERED: ACETAMINOPHEN 325 MG TABLET PO PRN (20:20)
[2019-01-18 21:29] LABS: APPEARANCE,URINE CLEAR; BILIRUBIN,URINE NEGATIVE (NEGATIVE); COLOR,URINE STRAW; GLUCOSE, URINE NEGATIVE (NEGATIVE); KETONES,URINE NEGATIVE (NEGATIVE); LEUKOCYTE ESTERASE,URINE NEGATIVE (NEGATIVE); NITRITE,URINE NEGATIVE (NEGATIVE); PROTEIN,URINE NEGATIVE (NEGATIVE); URINE SPECIFIC GRAVITY 1.021; UROBILINOGEN,URINE NEGATIVE mg/dL (<2.0)
--- NOTE | 2019-01-18 21:30 | RADIOLOGY REPORT (SQ) ---
MR BRAIN WITHOUT IV CONTRAST HISTORY: Aphasia. COMPARISON: CT head from earlier the same day. TECHNIQUE: Multisequence, multiplanar MR imaging of the brain was performed without the administration of intravenous gadolinium. FINDINGS: There is an area of restricted diffusion in the left basal ganglia consistent with acute lacunar infarction. The ventricles and sulci are normal in size. There is no intracranial hemorrhage, extra-axial fluid collection, or mass. The brainstem, posterior fossa, and cervicomedullary junction are preserved. The intravascular flow voids are preserved. The orbits are unremarkable. No abnormality of the skull base or calvarium is seen. The paranasal sinuses are clear. Partial opacification of a few bilateral mastoid air cells. IMPRESSION: 1. Acute lacunar infarction of the left basal ganglia. 2. No acute intracranial hemorrhage.
[2019-01-18] MEDS: FAMOTIDINE 20 MG TABLET PO SCH (22:18)
[2019-01-18] MEDS: HEPARIN SOD (PORCINE) 5,000 UNIT/ML 1 ML SYRINGE SUBCUT SCH (22:18)
--- NOTE | 2019-01-19 00:04 | PDOC H&P ---
History of Present Illness Admission Date/PCP: MISA HANSEN MD Patient complains of: Altered mental status History of Present Illness: JAMARCUS GUPTA is a 48 year old male with a history of acute onset today between 11 AM and 5 PM of confusion with dysarthria and aphasia with verbal perseveration. His provides information that he was normal when she left home at 11 AM today and upon her return at 5 PM she found him sitting in the garage smoking a cigarette, with a cup containing whiskey beside him, in his current physical and mental state. He admits that though he has limited memory he did go to the [employer] shop and get a haircut about noon and when he returned from his haircut he did not feel well so he laid down for an hour or so and then got up about 3 PM and was apparently driving around though he has no memory for this activity. He has noted difficulty with his speech both and stuttering and in having the inability to find the word he is trying to speak. He indicates that he can hear and understand everything that is being said to him but does have some difficulty in responding appropriately and occasionally continuously repeating the same word when he is trying to speak. His symptoms have been gradually improving since his initial presentation to the emergency room. He has not identified any aggravating or ameliorating factors for his neurological changes. In the emergency room he was found to have a negative CT scan of the head as well as a negative CTA of the brain. His blood alcohol was 79 and the remainder of his evaluation was unremarkable. He has a known history of hypertension which is being treated medically by his primary care provider. He had been 2 years sober until recently going on a diving trip to [place] for 2 months and during that time he resumed frequent consumption of alcohol. Due to the uncertainty of the time of onset of symptoms and the relatively long interval of before treatment it was determined, by the ER staff physician, that it was inappropriate to give the patient thrombolytics. Subsequently he will be admitted to the hospital for further evaluation and treatment per the stroke protocol on [facility]. Past Medical History Cardiac Medical History: Reports: Hypertension - MEDICATED Denies: Coronary Artery Disease, DVT, Pulmonary Embolism, Heart Murmur Pulmonary Medical History: Denies: Asthma, Chronic Obstructive Pulmonary Disease (COPD), Tuberculosis EENT Medical History: Denies: Cataracts, Nose - Nasal polyps Neurological Medical History: Denies: Hemorrhagic CVA, Ischemic CVA, Seizures Endocrine Medical History: Denies: Diabetes Mellitus Type 1, Diabetes Mellitus Type 2, Hyperthyroidism, Hypothyroidism Renal/ Medical History: Denies: Chronic Kidney Disease, Nephrolithiasis Malignancy Medical History: Reports: None GI Medical History: Denies: Cirrhosis, Crohn's Disease, Hepatitis, Hiatal Hernia, Ulcerative Colitis Musculoskeltal Medical History: Denies: Arthritis, Gout Skin Medical History: Denies: Eczema, Psoriasis Psychiatric Medical History: Reports: Alcohol Dependency, Bipolar Disorder, Depression, General Anxiety Disorder, Substance Abuse, Tobacco Dependency Traumatic Medical History: Reports: None Hematology: Denies: Anemia, Sickle Cell Disease, Bleeding Tendencies Infectious Medical History: Reports: None Past Surgical History Past Surgical History: Reports: Tonsillectomy - With adenoidectomy, Other - Aime-en-Y procedure, skin grafting for herrera, EAC dilatation bilaterally Social History Information Source: Patient, Relative - Lives with: Family, Spouse/Significant other Smoking Status: Current Every Day Smoker Frequency of Alcohol Use: Heavy - History of alcoholism in the past. Patient had been sober for 2 years prior to a trip to [place] last year and since that time he has been drinking again. Last Alcohol Use: 01/18/19 - Blood alcohol of 79 with a history of being found with a cup containing whiskey beside him in the garage today. Hx Recreational Drug Use: Yes Drugs: Other - Admits to using numerous substances in the remote past Hx Prescription Drug Abuse: No - Advance Directive Resuscitation Status: Full Code Surrogate healthcare decision maker:: Family History Family History: COPD, Malignancy - Prostate cancer Parental Family History Reviewed: Yes Children Family History Reviewed: No Sibling(s) Family History Reviewed.: Yes Medication/Allergy Home Medications: Amlodipine Besylate [Norvasc 10 mg Tablet] 10 mg PO DAILY 01/18/19 Atomoxetine HCl [Strattera 100 mg Capsule] 100 mg PO DAILY 01/18/19 Atorvastatin Calcium [Lipitor 20 mg Tablet] 20 mg PO QHS 01/18/19 Clonidine HCl [Catapres 0.1 mg Tablet] 0.1 mg PO DAILY 01/18/19 Fluoxetine HCl [Prozac 20 mg Capsule] 80 mg PO DAILY 01/18/19 Lisinopril [Zestril] 20 mg PO DAILY 01/18/19 Oxcarbazepine [Trileptal] 600 mg PO Q8 01/18/19 Tadalafil [Cialis] 5 mg PO DAILY 01/18/19 Tamsulosin HCl [Flomax 0.4 mg Cap.sr] 0.4 mg PO DAILY 01/18/19 Allergies/Adverse Reactions: No Known Allergies Allergy (Verified 01/18/19 19:53) Review of Systems Constitutional: PRESENT: as per HPI, other - General malaise. ABSENT: chills, fever(s) Eyes: ABSENT: visual disturbances, other - Eye pain Ears: ABSENT: hearing changes, other - Ear pain Nose, Mouth, and Throat: ABSENT: mouth pain, sore throat Cardiovascular: ABSENT: chest pain, dyspnea on exertion, palpitations Respiratory: ABSENT: cough, dyspnea Gastrointestinal: ABSENT: abdominal pain, constipation, diarrhea, nausea, vomiting Genitourinary: ABSENT: dysuria, hematuria Musculoskeletal: ABSENT: deformity, joint swelling Integumentary: ABSENT: pruritus, rash Neurological: PRESENT: as per HPI, abnormal speech, confusion, memory loss. ABSENT: focal weakness Psychiatric: ABSENT: anxiety, depression Endocrine: ABSENT: cold intolerance, heat intolerance Hematologic/Lymphatic: ABSENT: easy bleeding, easy bruising Physical Exam Vital Signs: Temp Pulse Resp BP Pulse Ox 98.9 F 51 L 22 H 144/90 H 100 01/18/19 17:46 01/18/19 17:52 01/18/19 19:32 01/18/19 19:32 01/18/19 19:32 Intake & Output 01/16/19 01/17/19 01/18/19 23:59 23:59 23:59 Output Total 1999 Balance -1999 Weight 102.5 kg General appearance: PRESENT: no acute distress, cooperative, obese Head exam: PRESENT: atraumatic, normocephalic Eye exam: PRESENT: conjunctiva pink, EOMI. ABSENT: scleral icterus Ear exam: PRESENT: normal external ear exam. ABSENT: bleeding, drainage Mouth exam: PRESENT: dry mucosa, neck supple Neck exam: ABSENT: thyromegaly, tracheal deviation Respiratory exam: PRESENT: clear to auscultation tamia, symmetrical, unlabored Cardiovascular exam: PRESENT: RRR, systolic murmur - 2/6 systolic murmur heard best at the left upper sternal border without radiation. ABSENT: clicks, gallop, rubs Pulses: PRESENT: normal radial pulses, normal dorsalis pedis pul Vascular exam: PRESENT: normal capillary refill. ABSENT: pallor GI/Abdominal exam: PRESENT: normal bowel sounds, soft Rectal exam: PRESENT: deferred Extremities exam: ABSENT: joint swelling, pedal edema Musculoskeletal exam: ABSENT: deformity, dislocation Neurological exam: PRESENT: alert, awake, oriented to person, oriented to place, oriented to time, oriented to situation, CN II-XII grossly intact, aphasic - M ild expressive aphasia noted Psychiatric exam: PRESENT: appropriate affect, normal mood Skin exam: PRESENT: dry, intact, warm. ABSENT: jaundice, rash, urticaria Results Laboratory Results: 01/18/19 17:20 01/18/19 18:56 01/18/19 01/18/19 01/18/19 17:20 17:20 18:56 WBC 8.0 RBC 4.62 Hgb 13.7 Hct 40.0 MCV 87 MCH 29.7 MCHC 34.3 RDW 14.8 H Plt Count 220 Seg Neutrophils % 65.9 Lymphocytes % 26.0 Monocytes % 6.5 Eosinophils % 1.0 Basophils % 0.6 Absolute Neutrophils 5.3 Absolute Lymphocytes 2.1 Absolute Monocytes 0.5 Absolute Eosinophils 0.1 Absolute Basophils 0.0 Sodium Cancelled 132.9 L Potassium Cancelled 4.0 Chloride Cancelled 97 L Carbon Dioxide Cancelled 23 Anion Gap Cancelled 13 BUN Cancelled 9 Creatinine Cancelled 0.87 Est GFR ( Amer) Cancelled > 60 Est GFR (Non-Af Amer) Cancelled > 60 Glucose Cancelled 98 Calcium Cancelled 9.6 Total Bilirubin Cancelled 0.5 AST Cancelled 25 ALT Cancelled 22 Alkaline Phosphatase Cancelled 76 Total Protein Cancelled 6.7 Albumin Cancelled 4.3 01/18/19 01/18/19 01/18/19 17:20 17:20 18:56 Creatine Kinase Cancelled 100 CK-MB (CK-2) 1.17 Troponin I 0.015 Impressions: Chest/Abdomen CTA 01/18/19 00:00 IMPRESSION: Mild bronchial wall thickening centrally and mild interstitial thickening. Mild reactive appearing hilar and mediastinal nodes. No evidence for pulmonary arterial emboli or aortic dissection. New 2 cm low-density right adrenal nodule.. Head CT 01/18/19 17:13 IMPRESSION: NORMAL BRAIN CT WITHOUT CONTRAST. EVIDENCE OF ACUTE STROKE: NO. Head CTA 01/18/19 17:13 IMPRESSION: No evidence for dissection or significant stenosis in the head or neck. Neck CTA 01/18/19 17:13 IMPRESSION: No evidence for dissection or significant stenosis in the head or neck. Status: Imported from PACS Assessment & Plan - Diagnosis (1) Acute CVA (cerebrovascular accident) Is this a current diagnosis for this admission?: Yes Plan: Patient be admitted to the stroke protocol on [facility]. Further evaluation of his cerebrovascular accident will be undertaken with a echocardiogram and a carotid Doppler study ordered for the morning. Additional supportive and symptomatic c hi will be provided as required. Patient will be started on Plavix 75 mg p.o. daily and aspirin 325 mg p.o. daily as prophylaxis against further cerebrovascular occlusion. MRI revealed an acute lacunar infarct of the left basal ganglia. (2) Acute encephalopathy Is this a current diagnosis for this admission?: Yes Plan: Patient be admitted to the [facility] stroke protocol. He will have assessments by speech therapy, physical therapy and occupational therapy. Further supportive and symptomatic care will be provided as appropriate. (3) Hypertension Qualifiers: Hypertension type: essential hypertension Qualified Code(s): I10 - Essential (primary) hypertension Is this a current diagnosis for this admission?: Yes Plan: Patient be continued on his usual antihypertensive regiment with changes made o nly as required for adequate blood pressure control. (4) Alcohol abuse Is this a current diagnosis for this admission?: Yes Plan: Encouraged abstinence. (5) Tobacco dependence due to cigarettes Is this a current diagnosis for this admission?: Yes Plan: Encouraged abstinence. - Time Time Spent: 30 to 50 Minutes Critical Time spent with patient: Less than 15 minutes Medications reviewed and adjusted accordingly: Yes Anticipated discharge: Home with Homehealth, SNF, Acute Rehab - Inpatient Certification Based on my medical assessment, after consideration of the patient's comorbidities, presenting symptoms, or acuity I expect that the services needed warrant INPATIENT care.: Yes I certify that my determination is in accordance with my understanding of Medicare's requirements for reasonable and necessary INPATIENT services [42 CFR 412.3e].: Yes Medical Necessity: Need Close Monitoring Due to Risk of Patient Decompensation, Need For Continuous Telemetry Monitoring, Need for Neurological Checks, Risk of Complication if Not Cared For in Hospital
[2019-01-19 00:21] LABS: CREATINE KINASE MB 1.01 ng/mL (<4.55)
[2019-01-19 00:24] LABS: TROPONIN I 0.013 ng/mL
[2019-01-19] MEDS: HEPARIN SOD (PORCINE) 5,000 UNIT/ML 1 ML SYRINGE SUBCUT SCH ×3 (05:53→21:14)
[2019-01-19 06:24] LABS: HEMATOCRIT 38.8 % (37.9-51.0); HEMOGLOBIN 13.5 g/dL (13.5-17.0); MEAN CORPUSCULAR HEMOGLOBIN 29.5 pg (27.0-33.4); MEAN CORPUSCULAR HGB CONC 34.8 g/dL (32.0-36.0); MEAN CORPUSCULAR VOLUME 85 fl (80-97); PLATELET COUNT 192 10^3/uL (150-450); RED BLOOD COUNT 4.58 10^6/uL (4.35-5.55); RED CELL DISTRIBUTION WIDTH 15.2 % (11.5-14.0); WHITE BLOOD COUNT 4.8 10^3/uL (4.0-10.5)
[2019-01-19 06:36] LABS: ANION GAP 8 (5-19); BLOOD UREA NITROGEN 8 mg/dL (7-20); CALCIUM 9.5 mg/dL (8.4-10.2); CARBON DIOXIDE 26 mmol/L (22-30); CHLORIDE 101 mmol/L (98-107); CHOLESTEROL 140.41 mg/dL (0-200); GLUCOSE 83 mg/dL (75-110); POTASSIUM 4.4 mmol/L (3.6-5.0); SODIUM 134.5 mmol/L (137-145); TRIGLYCERIDES 103 mg/dL (<150)
[2019-01-19 06:46] LABS: DIRECT LDL 64 mg/dL (<100)
[2019-01-19 06:47] LABS: CREATINE KINASE MB 0.76 ng/mL (<4.55); TROPONIN I 0.013 ng/mL
[2019-01-19] MEDS: ASPIRIN/DIPYRIDAMOLE 25-200 MG 1 CAP.SR CPMP.12HR PO SCH ×2 (09:47→21:14)
[2019-01-19] MEDS: LISINOPRIL 10 MG TABLET PO SCH (09:47)
[2019-01-19] MEDS: CLONIDINE HCL 0.1 MG TABLET PO SCH (09:48)
[2019-01-19] MEDS: FAMOTIDINE 20 MG TABLET PO SCH ×2 (09:48→21:14)
[2019-01-19] MEDS: FLUOXETINE HCL 20 MG CAPSULE PO SCH (09:48)
[2019-01-19] MEDS: TAMSULOSIN HCL 0.4 MG CAP.SR.24H PO SCH (09:48)
[2019-01-19] MEDS: AMLODIPINE BESYLATE 10 MG TABLET PO SCH (09:48)
[2019-01-19] MEDS ORDERED: ASPIRIN 325 MG TABLET, ENT COATED PO SCH (10:00)
[2019-01-19] MEDS ORDERED: ATOMOXETINE HCL 100 MG PO SCH (10:00)
[2019-01-19] MEDS ORDERED: (PENDING PHARMACY ID) (Oxcarbazepine [Trileptal] 600 MG) PO SCH (10:00)
[2019-01-19] MEDS ORDERED: (PENDING PHARMACY ID) (Buspirone Hcl [Buspirone Hcl] 30 MG) PO SCH (10:00)
[2019-01-19] MEDS ORDERED: CLOPIDOGREL BISULFATE 75 MG TABLET PO SCH (10:00)
[2019-01-19] MEDS ORDERED: ATORVASTATIN CALCIUM 20 MG TABLET PO SCH ×2 (10:00→22:00)
[2019-01-19] MEDS ORDERED: AMLODIPINE BESYLATE 5 MG TABLET PO SCH (10:00)
[2019-01-19] MEDS ORDERED: (PENDING PHARMACY ID) (Lisinopril/Hydrochlorothiazide [Lisinopril-Hctz 20-12.5 Mg Tab] 2 E PO SCH (10:00)
[2019-01-19] MEDS ORDERED: TADALAFIL 5 MG PO SCH (10:00)
[2019-01-19] MEDS: NICOTINE 21 MG/24 HR PATCH.TD24 TD PRN (10:48)
[2019-01-19 12:30] LABS: CREATINE KINASE MB 0.54 ng/mL (<4.55)
[2019-01-19 12:33] LABS: TROPONIN I < 0.012 ng/mL
--- NOTE | 2019-01-19 21:59 | PDOC PROGRESS REPORT ---
Subjective Progress Note for:: 01/19/19 Subjective:: Patient was admitted for hypertension and onset of aphasia. He reports that his speech is much improved. He is eating and drinking without difficulty. Reason For Visit: ALTERED MENTAL STATUS,PROBABLE ACUTE CVA Physical Exam Vital Signs: Temp Pulse Resp BP Pulse Ox 97.5 F 47 L 16 130/77 H 100 01/19/19 19:40 01/19/19 20:00 01/19/19 20:00 01/19/19 20:00 01/19/19 20:00 Intake & Output 01/18/19 01/19/19 01/20/19 06:59 06:59 06:59 Intake Total 1000 Output Total 2320 Balance -1320 Weight 91.7 kg General appearance: PRESENT: no acute distress Head exam: PRESENT: normocephalic Eye exam: PRESENT: conjunctiva pink, EOMI. ABSENT: scleral icterus Ear exam: PRESENT: normal external ear exam Respiratory exam: PRESENT: clear to auscultation tamia, symmetrical, unlabored. ABSENT: rales, rhonchi Cardiovascular exam: PRESENT: RRR, +S1, +S2 GI/Abdominal exam: PRESENT: normal bowel sounds, soft. ABSENT: distended, tenderness Rectal exam: PRESENT: deferred Extremities exam: ABSENT: pedal edema Musculoskeletal exam: PRESENT: ambulatory, normal inspection Neurological exam: PRESENT: alert, awake, oriented to person, oriented to place, oriented to time, oriented to situation, other - No facial droop appreciated. ABSENT: aphasic - Aphasia appears to be resolved Psychiatric exam: PRESENT: flat affect. ABSENT: agitated, anxious Focused psych exam: ABSENT: delusional, restlessness Results Laboratory Results: 01/19/19 05:54 01/19/19 05:54 01/19/19 01/19/19 05:54 05:54 WBC 4.8 RBC 4.58 Hgb 13.5 Hct 38.8 MCV 85 MCH 29.5 MCHC 34.8 RDW 15.2 H Plt Count 192 Sodium 134.5 L Potassium 4.4 Chloride 101 Carbon Dioxide 26 Anion Gap 8 BUN 8 Creatinine 0.80 Est GFR ( Amer) > 60 Est GFR (Non-Af Amer) > 60 Glucose 83 Calcium 9.5 Triglycerides 103 Cholesterol 140.41 LDL Cholesterol Direct 64 VLDL Cholesterol 21.0 HDL Cholesterol 60 01/18/19 01/18/19 01/18/19 17:20 17:20 18:56 Creatine Kinase Cancelled 100 CK-MB (CK-2) 1.17 Troponin I 0.015 01/18/19 01/18/19 01/19/19 23:41 23:41 05:54 Creatine Kinase 82 73 CK-MB (CK-2) 1.01 Troponin I 0.013 01/19/19 01/19/19 01/19/19 05:54 11:45 11:45 Creatine Kinase 62 CK-MB (CK-2) 0.76 0.54 Troponin I 0.013 < 0.012 Impressions: Chest/Abdomen CTA 01/18/19 00:00 IMPRESSION: Mild bronchial wall thickening centrally and mild interstitial thickening. Mild reactive appearing hilar and mediastinal nodes. No evidence for pulmonary arterial emboli or aortic dissection. New 2 cm low-density right adrenal nodule.. Head CT 01/18/19 17:13 IMPRESSION: NORMAL BRAIN CT WITHOUT CONTRAST. EVIDENCE OF ACUTE STROKE: NO. Head CTA 01/18/19 17:13 IMPRESSION: No evidence for dissection or significant stenosis in the head or neck. Neck CTA 01/18/19 17:13 IMPRESSION: No evidence for dissection or significant stenosis in the head or neck. Head MRI 01/18/19 18:58 IMPRESSION: 1. Acute lacunar infarction of the left basal ganglia. 2. No acute intracranial hemorrhage. Assessment & Plan - Diagnosis (1) Acute CVA (cerebrovascular accident) Is this a current diagnosis for this admission?: Yes Plan: A lacunar infarct was noted on diagnostic imaging. Her goal would be good blood pressure control. We will continue aspirin therapy as well as statin therapy. The patient seems to be resolving weekly. He may not even need outpatient therapy. Would like to see consistent blood pressure control. Likely discharge tomorrow. (2) Hypertension Qualifiers: Hypertension type: essential hypertension Qualified Code(s): I10 - Essential (primary) hypertension Is this a current diagnosis for this admission?: Yes Plan: Continue lisinopril and Norvasc. (3) Aphasia Is this a current diagnosis for this admission?: Yes Plan: Significantly improved from admission. Patient reports that he could not put words together and now he speaks in complete sentences with appropriate communication. - Time Time Spent with patient: 15-24 minutes Medications reviewed and adjusted accordingly: Yes Anticipated discharge: Home Within: within 24 hours
[2019-01-20 05:50] LABS: HEMATOCRIT 39.4 % (37.9-51.0); HEMOGLOBIN 13.5 g/dL (13.5-17.0); MEAN CORPUSCULAR HEMOGLOBIN 28.9 pg (27.0-33.4); MEAN CORPUSCULAR HGB CONC 34.2 g/dL (32.0-36.0); MEAN CORPUSCULAR VOLUME 85 fl (80-97); PLATELET COUNT 190 10^3/uL (150-450); RED BLOOD COUNT 4.66 10^6/uL (4.35-5.55); RED CELL DISTRIBUTION WIDTH 14.5 % (11.5-14.0); WHITE BLOOD COUNT 6.5 10^3/uL (4.0-10.5)
[2019-01-20 06:22] LABS: ANION GAP 6 (5-19); BLOOD UREA NITROGEN 14 mg/dL (7-20); CALCIUM 9.2 mg/dL (8.4-10.2); CARBON DIOXIDE 28 mmol/L (22-30); CHLORIDE 105 mmol/L (98-107); GLUCOSE 97 mg/dL (75-110); POTASSIUM 4.3 mmol/L (3.6-5.0); SODIUM 138.5 mmol/L (137-145)
[2019-01-20] MEDS: HEPARIN SOD (PORCINE) 5,000 UNIT/ML 1 ML SYRINGE SUBCUT SCH (06:24)
[2019-01-20] MEDS: ASPIRIN/DIPYRIDAMOLE 25-200 MG 1 CAP.SR CPMP.12HR PO SCH (09:23)
[2019-01-20] MEDS: TAMSULOSIN HCL 0.4 MG CAP.SR.24H PO SCH (09:24)
[2019-01-20] MEDS: LISINOPRIL 10 MG TABLET PO SCH (09:24)
[2019-01-20] MEDS: FLUOXETINE HCL 20 MG CAPSULE PO SCH (09:24)
[2019-01-20] MEDS: FAMOTIDINE 20 MG TABLET PO SCH (09:24)
[2019-01-20] MEDS: AMLODIPINE BESYLATE 10 MG TABLET PO SCH (09:24)
[2019-01-20] MEDS: NICOTINE 21 MG/24 HR PATCH.TD24 TD PRN (09:25)
[2019-01-20] MEDS: CLONIDINE HCL 0.1 MG TABLET PO SCH (11:16)
[2019-01-20 14:44] VITALS: BP 133/75
--- NOTE | 2019-01-20 20:45 | PDOC DISCHARGE SUMMARY ---
General - Admit/Disc Date/PCP Admission Date/Primary Care Provider: 01/18/19 20:35 MISA HANSEN MD Discharge Date: 01/20/19 - Discharge Diagnosis (1) Acute CVA (cerebrovascular accident) Is this a current diagnosis for this admission?: Yes Summary: Not visualized on the CT scan of the head but noticed on MRI was an acute lacunar infarct in the basal ganglia. The patient's primary symptom was aphasia. Within 24 hours it has resolved completely. The patient freely admits that he had trouble putting sentences together. Now he speaks clearly and concisely. There were many questions about the potential for recurrence and preventive measures. The patient will be discharged on Aggrenox. In addition he is on statin therapy (atorvastatin 20 mg daily) as well as antihypertensives. His goal is to maintain good blood pressure control. I encouraged very strongly, and this was supported by his , but he absolutely must stop smoking altogether. In addition he states that he takes 3-4 pots of coffee daily. I told him that the amount of caffeine he is taking in is very bad for him. I explained that he needs to have good blood pressure control. He should start exercising regularly as well. He will follow-up with his primary care provider. He may suggest follow-up with a neurologist but I will defer to the primary care provider. (2) Aphasia Is this a current diagnosis for this admission?: Yes (3) Hypertension Is this a current diagnosis for this admission?: Yes Summary: The patient was discharged on lisinopril and amlodipine. He is also on clonidine I believe that is for psychologic issues. He is on multiple medications in that regard. Blood pressure is reasonably controlled. Again stop smoking and increased exercise were strongly encouraged. It was pointed out that the tremendous amount of caffeine that he takes also contribute to hypertension as well as palpitations. (4) Bipolar 1 disorder, depressed Is this a current diagnosis for this admission?: Yes Summary: The patient is on multiple medications. He was returned to his home medication regimen. (5) Anxiety Is this a current diagnosis for this admission?: Yes Summary: As above. - Additional Information Resuscitation Status: Full Code Discharge Diet: Cardiac, Other (Comments) - No caffeine Discharge Activity: Activity As Tolerated, Walk Frequently Prescriptions: Aspirin/Dipyridamole [Aggrenox 25 mg/200 mg Capsule SA] 1 cap.sr PO Q12 30 Days #60 cpmp.12hr Home Medications: Amlodipine Besylate [Norvasc 10 mg Tablet] 10 mg PO DAILY 01/18/19 Atomoxetine HCl [Strattera 100 mg Capsule] 100 mg PO DAILY 01/18/19 Atorvastatin Calcium [Lipitor 20 mg Tablet] 20 mg PO QHS 01/18/19 Clonidine HCl [Catapres 0.1 mg Tablet] 0.1 mg PO DAILY 01/18/19 Fluoxetine HCl [Prozac 20 mg Capsule] 80 mg PO DAILY 01/18/19 Lisinopril [Zestril] 20 mg PO DAILY 01/18/19 Oxcarbazepine [Trileptal] 600 mg PO Q8 01/18/19 Tadalafil [Cialis] 5 mg PO DAILY 01/18/19 Tamsulosin HCl [Flomax 0.4 mg Cap.sr] 0.4 mg PO DAILY 01/18/19 Aspirin/Dipyridamole [Aggrenox 25 mg/200 mg Capsule SA] 1 cap.sr PO Q12 30 Days #60 cpmp.12hr 01/20/19 Nicotine [Nicoderm 21 mg/24 Hr Transderm Patch] 1 each TD DAILYP PRN patch.td24 01/20/19 History of Present Illness Patient complains of: Confusion and aphasia History of Present Illness: JAMARCUS GUPTA is a 48 year old male who experienced acute onset confusion, word finding difficulties and perseveration. He presented emergency department. CT scan of the head as well as CT angiogram of the head and neck were unremarkable. The MRI showed the lacunar infarct. Within 24 hours he had regained [place] the majority of function. By today there was no evidence of his aphasia and he was able to eat without compromise. Hospital Course Hospital Course: The patient had an unremarkable hospital course with Pham and complete recovery. Physical Exam Vital Signs: Temp Pulse Resp BP Pulse Ox 98.1 F 44 L 16 155/77 H 100 01/20/19 08:49 01/20/19 08:49 01/20/19 08:49 01/20/19 08:49 01/20/19 08:49 Intake & Output 01/19/19 01/20/19 01/21/19 06:59 06:59 06:59 Intake Total 1000 222 Output Total 2320 Balance -1320 222 Weight 91.7 kg 98.8 kg General appearance: PRESENT: no acute distress, cooperative, well-developed Head exam: PRESENT: normocephalic Ear exam: PRESENT: normal external ear exam Mouth exam: PRESENT: moist, tongue midline Neck exam: PRESENT: full ROM. ABSENT: carotid bruit, JVD, lymphadenopathy Respiratory exam: PRESENT: clear to auscultation tamia, symmetrical, unlabored. ABSENT: accessory muscle use, rales, rhonchi, wheezes Cardiovascular exam: PRESENT: RRR, +S1, +S2 GI/Abdominal exam: PRESENT: normal bowel sounds, soft. ABSENT: distended, tenderness Rectal exam: PRESENT: deferred Extremities exam: ABSENT: calf tenderness, pedal edema Musculoskeletal exam: PRESENT: ambulatory Neurological exam: PRESENT: alert, awake, oriented to person, oriented to place, oriented to time, oriented to situation, CN II-XII grossly intact Psychiatric exam: PRESENT: unusual affect - His facial responses to several discussed issues were somewhat surprising. This certainly could be his baseline.. ABSENT: agitated, anxious Focused psych exam: ABSENT: delusional, restlessness Skin exam: PRESENT: dry, warm. ABSENT: rash Results Laboratory Results: 01/20/19 05:32 01/20/19 05:32 01/20/19 01/20/19 05:32 05:32 WBC 6.5 RBC 4.66 Hgb 13.5 Hct 39.4 MCV 85 MCH 28.9 MCHC 34.2 RDW 14.5 H Plt Count 190 Sodium 138.5 Potassium 4.3 Chloride 105 Carbon Dioxide 28 Anion Gap 6 BUN 14 Creatinine 0.88 Est GFR ( Amer) > 60 Est GFR (Non-Af Amer) > 60 Glucose 97 Calcium 9.2 01/18/19 01/18/19 01/18/19 17:20 17:20 18:56 Creatine Kinase Cancelled 100 CK-MB (CK-2) 1.17 Troponin I 0.015 01/18/19 01/18/19 01/19/19 23:41 23:41 05:54 Creatine Kinase 82 73 CK-MB (CK-2) 1.01 Troponin I 0.013 01/19/19 01/19/19 01/19/19 05:54 11:45 11:45 Creatine Kinase 62 CK-MB (CK-2) 0.76 0.54 Troponin I 0.013 < 0.012 Impressions: Chest/Abdomen CTA 01/18/19 00:00 IMPRESSION: Mild bronchial wall thickening centrally and mild interstitial thickening. Mild reactive appearing hilar and mediastinal nodes. No evidence for pulmonary arterial emboli or aortic dissection. New 2 cm low-density right adrenal nodule.. Head CT 01/18/19 17:13 IMPRESSION: NORMAL BRAIN CT WITHOUT CONTRAST. EVIDENCE OF ACUTE STROKE: NO. Head CTA 01/18/19 17:13 IMPRESSION: No evidence for dissection or significant stenosis in the head or neck. Neck CTA 01/18/19 17:13 IMPRESSION: No evidence for dissection or significant stenosis in the head or neck. Head MRI 01/18/19 18:58 IMPRESSION: 1. Acute lacunar infarction of the left basal ganglia. 2. No acute intracranial hemorrhage. Qualifiers - * PATIENT BEING DISCHARGED WITH ANY OF THE FOLLOWING DIAGNOSIS: Stroke Stroke Pt being discharged on Anti-thrombolytic therapy?: Yes Stroke Pt being discharged on Anti-coagulation therapy?: No Reason(s) for not prescribing Anti-coagulation therapy:: Not indicated Stroke Pt being discharged on Statins?: Yes Plan Discharge Plan: The patient will be discharged home. He must follow-up with his primary care provider. I repeatedly stressed the importance of stopping all smoking as well as switching to decaffeinated coffee. He should exercise regularly. He needs to be compliant with his medications. Time Spent: Greater than 30 Minutes
--- NOTE | 2019-01-20 21:53 | XCELERA REPORT ---
[address] [address] Transthoracic Echocardiogram Report Name: JAMARCUS GUPTA Age: 48 yrs Gender: Male : 1970 Patient Status: Inpatient Patient Location: [address] [place] [address] Study Date: 01/19/2019 09:59 AM Height: 69 in Weight: 225 lb BSA: 2.2 m2 Procedure: A two-dimensional transthoracic echocardiogram with color flow Doppler was performed. Images were not obtained from all of the standard acoustic windows due to the limited scope of the study. Reason For Study: AMS confusion dysarthria perseveration History: CVA. Ordering Physician: MANNY VAZQUEZ Performed By: Malathi Ramos Interpretation Summary There is no obvious cardiac source of embolus noted on this transthoracic echocardiogram. Follow-up with a ERLINDA is suggested if cardiac source is still suspected. Images were not obtained from all of the standard acoustic windows due to the limited scope of the study. The left ventricle is normal in size. There is normal left ventricular wall thickness. No True apical 2 chamber views obtained.Hence cannot comment on the apical anterior , the basal anterior, the basal inferior and apical inferior henderson.The mid anterior , the mid inferior and the rest of the LV henderson contract normally. .Normal LVEF is normal and is greater than 65% in the limited views. Doppler measurements suggest normal left ventricular diastolic function There is no thrombus. The right ventricle is grossly normal size. The right atrium is normal. The left atrial size is normal. The interatrial septum is intact with no evidence for an atrial septal defect. There is no evidence of mitral valve prolapse. There is no mitral valve stenosis. There is no mitral regurgitation noted. There is no aortic valvular vegetation. There is no aortic valve stenosis There is no LVOT obstruction. No aortic regurgitation is present. There is no tricuspid stenosis. There is a trace amount of tricuspid regurgitation There is mild pulmonary hypertension by echo RVSP is 33 to 38 mm of Hg , with RA mean of 5 to 0. There is no pulmonic valvular regurgitation. There is no pulmonic valvular stenosis. The aortic root is normal size. The inferior vena cava appeared normal and decreased > 50% with respiration (RAP 5-10 mmHg) There is no pericardial effusion. There is no obvious cardiac source of embolus noted on this transthoracic echocardiogram. Follow-up with a ERLINDA is suggested if cardiac source is still suspected MMode/2D Measurements & Calculations RVDd: 3.5 cm LVIDd: 5.4 cm FS: 29.5 % Ao root diam: 3.7 cm IVSd: 0.91 cm LVIDs: 3.8 cm EDV(Teich): Ao root area: LVPWd: 1.1 cm 143.8 ml 11.0 cm2 ESV(Teich): 63.4 ml EF(Teich): 55.9 % EDV(MOD-sp4): SV(MOD-sp4): 148.3 ml 98.4 ml ESV(MOD-sp4): 49.9 ml EF(MOD-sp4): 66.4 % Doppler Measurements & Calculations MV E max christopher: MV dec slope: Ao V2 max: LV V1 max P.6 cm/sec 157.6 cm/sec 6.5 mmHg MV A max christopher: 492.6 cm/sec2 Ao max PG: LV V1 max: 77.9 cm/sec MV dec time: 0.20 sec 9.9 mmHg 127.8 cm/sec MV E/A: 1.3 PA V2 max: TR max christopher: 84.1 cm/sec 265.0 cm/sec PA max P.8 mmHgTR max P.2 mmHg Left Ventricle The left ventricle is normal in size. There is normal left ventricular wall thickness. No True apical 2 chamber views obtained.Hence cannot comment on the apical anterior , the basal anterior, the basal inferior and apical inferior henderson.The mid anterior , the mid inferior and the rest of the LV henderson contract normally. .Normal LVEF is normal and is greater than 65% in the limited views. Doppler measurements suggest normal left ventricular diastolic function. There is no thrombus. There is no ventricular septal defect visualized. Right Ventricle The right ventricle is grossly normal size. Atria The right atrium is normal. The left atrial size is normal. The interatrial septum is intact with no evidence for an atrial septal defect. Mitral Valve There is no evidence of mitral valve prolapse. There is no mitral valve stenosis. There is no mitral regurgitation noted. Aortic Valve There is no aortic valvular vegetation. There is no aortic valve stenosis. There is no LVOT obstruction. No aortic regurgitation is present. Tricuspid Valve There is no tricuspid stenosis. There is a trace amount of tricuspid regurgitation. There is mild pulmonary hypertension by echo. RVSP is 33 to 38 mm of Hg , with RA mean of 5 to 0. Pulmonic Valve There is no pulmonic valvular stenosis. There is no pulmonic valvular regurgitation. Great Vessels The aortic root is normal size. The inferior vena cava appeared normal and decreased > 50% with respiration (RAP 5-10 mmHg). Effusions There is no pericardial effusion. : MANNY VAZQUEZ Lakshmi
== END 2019-01-20 15:29 | disposition home or self-care (01) | DRG 65 ==
LOC: ER 17:09 → EH 20:35 → 3S 22:49
PROVIDERS: ADMIT Emergency Medicine; ATTEND Emergency Medicine
DX: I63.81 Other cerebral infarction due to occlusion or stenosis of small artery (principal); E87.1 Hypo-osmolality and hyponatremia; G93.40 Encephalopathy, unspecified; I10 Essential (primary) hypertension; R47.01 Aphasia; R47.89 Other speech disturbances; F31.9 Bipolar disorder, unspecified; F41.9 Anxiety disorder, unspecified; F10.20 Alcohol dependence, uncomplicated; Y90.3 Blood alcohol level of 60-79 mg/100 ml; Z80.42 Family history of malignant neoplasm of prostate; Z79.899 Other long term (current) drug therapy; F17.210 Nicotine dependence, cigarettes, uncomplicated
CPT/HCPCS: 36415; 70450; 70496; 70498; 70551; 71275; 80048; 80053; 80061; 80307; 81001; 82550; 82553; 82962; 83036; 84484; 85025; 85027; 85610; 85730; 93005; 93010; 93306; 96360; 99291; J1644; J3490; J7120

== ENCOUNTER 2019-03-16 06:06 | Emergency (ER) | payer BC, MEDICARE ==
[2019-03-16 06:17] VITALS: BP 148/73
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
== END 2019-03-16 07:37 | disposition home or self-care (01) ==
LOC: ER 06:06
DX: F10.120 Alcohol abuse with intoxication, uncomplicated (principal); I69.320 Aphasia following cerebral infarction; F17.210 Nicotine dependence, cigarettes, uncomplicated; I10 Essential (primary) hypertension
CPT/HCPCS: 99283

== ENCOUNTER 2019-06-22 14:19 | Emergency (ER) | payer BC, MEDICARE ==
[2019-06-22 15:09] LABS: ABSOLUTE BASOPHILS # (AUTO) 0.1 10^3/uL (0.0-0.2); ABSOLUTE EOSINOPHILS # (AUTO) 0.1 10^3/uL (0.0-0.6); ABSOLUTE LYMPHOCYTES (AUTO) 1.3 10^3/uL (0.5-4.7); ABSOLUTE MONOCYTES (AUTO) 0.6 10^3/uL (0.1-1.4); BASOPHILS % (AUTO) 0.7 % (0-2); EOSINOPHILS % (AUTO) 1.4 % (0-6); HEMATOCRIT 42.1 % (37.9-51.0); HEMOGLOBIN 14.1 g/dL (13.5-17.0); LYMPHOCYTES % (AUTO) 16.3 % (13-45); MEAN CORPUSCULAR HEMOGLOBIN 28.1 pg (27.0-33.4); MEAN CORPUSCULAR HGB CONC 33.5 g/dL (32.0-36.0); MEAN CORPUSCULAR VOLUME 84 fl (80-97); MONOCYTES % (AUTO) 7.8 % (3-13); PLATELET COUNT 231 10^3/uL (150-450); RED BLOOD COUNT 5.02 10^6/uL (4.35-5.55); RED CELL DISTRIBUTION WIDTH 16.9 % (11.5-14.0); SEGMENTED NEUTROPHILS % (AUTO) 73.8 % (42-78); TOTAL CELLS COUNTED % (AUTO) 100 %; WHITE BLOOD COUNT 8.1 10^3/uL (4.0-10.5)
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
[2019-06-22 15:26] LABS: APPEARANCE,URINE CLEAR; BILIRUBIN,URINE NEGATIVE (NEGATIVE); COLOR,URINE YELLOW; GLUCOSE, URINE NEGATIVE (NEGATIVE); KETONES,URINE NEGATIVE (NEGATIVE); LEUKOCYTE ESTERASE,URINE NEGATIVE (NEGATIVE); NITRITE,URINE NEGATIVE (NEGATIVE); PROTEIN,URINE NEGATIVE (NEGATIVE); URINE SPECIFIC GRAVITY 1.009; UROBILINOGEN,URINE NEGATIVE mg/dL (<2.0)
[2019-06-22 15:34] LABS: ALBUMIN 4.6 g/dL (3.5-5.0); ALCOHOL 68 mg/dL (NONE DETECTED); ALKALINE PHOSPHATASE 82 U/L (38-126); ANION GAP 14 (5-19); ASPARTATE AMINO TRANSFERASE 53 U/L (17-59); BILIRUBIN,DIRECT 0.2 mg/dL (0.0-0.4); BILIRUBIN,TOTAL 0.3 mg/dL (0.2-1.3); BLOOD UREA NITROGEN 12 mg/dL (7-20); CALCIUM 9.3 mg/dL (8.4-10.2); CARBON DIOXIDE 22 mmol/L (22-30); CHLORIDE 100 mmol/L (98-107); GLUCOSE 99 mg/dL (75-110); POTASSIUM 4.2 mmol/L (3.6-5.0); TOTAL PROTEIN 7.2 g/dL (6.3-8.2)
[2019-06-22 15:36] LABS: ADD MANUAL MICROSCOPIC YES; RBC,URINE 0-1 /HPF
[2019-06-22 15:37] LABS: ACETAMINOPHEN < 10 ug/mL (10-30); SALICYLATE < 1.0 mg/dL (2.0-20.0)
[2019-06-22 15:45] LABS: URINE AMPHETAMINES SCREEN NEGATIVE; URINE BARBITURATES SCREEN UNCONFIRMED POSITIVE; URINE BENZODIAZEPINES SCREEN NEGATIVE; URINE COCAINE SCREEN NEGATIVE; URINE MARIJUANA (THC) SCREEN NEGATIVE; URINE METHADONE SCREEN NEGATIVE; URINE PHENCYCLIDINE SCREEN NEGATIVE
--- NOTE | 2019-06-22 17:19 | PSYCHOLOGICAL NOTE ---
Psych Note - Psych Note Date seen by psych provider: 06/22/19 Time seen by psych provider: 16:00 Psych Note: 49-year-old male with history of bipolar disorder, alcoholism and paranoia presents to the ED by the snow shoveler's department on IVC paperwork for the reason of being a danger to himself and others. Impression\plan: Patient is recommended to continue under IVC.
--- NOTE | 2019-06-22 17:50 | EKG REPORT ---
SEVERITY:- NORMAL ECG - SINUS RHYTHM : Confirmed by: Fawad Holder MD 22-Jun-2019 17:50:25
[2019-06-22] MEDS ORDERED: OXCARBAZEPINE 150 MG TABLET PO ONE (18:36)
[2019-06-22] MEDS: BUSPIRONE HCL 10 MG TABLET PO SCH (21:37)
[2019-06-22] MEDS: ATORVASTATIN CALCIUM 20 MG TABLET PO SCH (21:37)
[2019-06-22] MEDS: OXCARBAZEPINE 150 MG TABLET PO SCH (21:42)
[2019-06-22] MEDS ORDERED: LORAZEPAM 1 MG TABLET PO ONE (22:36)
[2019-06-23] MEDS: BUSPIRONE HCL 10 MG TABLET PO SCH ×2 (07:08→18:41)
[2019-06-23] MEDS: OXCARBAZEPINE 150 MG TABLET PO SCH (07:08)
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
[2019-06-23] MEDS: AMLODIPINE BESYLATE 10 MG TABLET PO SCH (09:28)
[2019-06-23] MEDS: ASPIRIN 81 MG TABLET, ENT COATED PO SCH (09:28)
[2019-06-23] MEDS: TAMSULOSIN HCL 0.4 MG CAP.SR.24H PO SCH (09:28)
[2019-06-23] MEDS ORDERED: TADALAFIL 5 MG PO SCH (10:00)
[2019-06-23] MEDS ORDERED: CLONIDINE HCL 0.1 MG TABLET PO SCH (10:00)
[2019-06-23] MEDS ORDERED: (PENDING PHARMACY ID) (Clonidine Hcl [Clonidine Hcl Er] 0.1 MG) PO SCH (10:00)
[2019-06-23] MEDS ORDERED: FLUOXETINE HCL 20 MG CAPSULE PO SCH (10:00)
--- NOTE | 2019-06-23 11:09 | PSYCHOLOGICAL NOTE ---
Psych Note - Psych Note Date seen by psych provider: 06/23/19 Psych Note: 49-year-old male with history of bipolar disorder, alcoholism and paranoia presents to the ED by the prepress supervisor's department on IVC paperwork for the reason of being a danger to himself and others. Medication recommendations per [facility]'s contracted psychiatrist Dr Joy BRASHER are as follows Discontinue home medications of strattera and Vivitrol Please add Zyprexa 2.5mg twice daily Please add depakote 250mg twice daily at 2pm and at bedtime Please decrease home medication of Prozac to 20mg twice daily Please decrease home medication of Buspar to 10mg twice daily Please decrease home medication of Trileptal to 600mg every morning for 7 days Please increase home medication of Clondine to 0.2mg every evening at bedtime Impression\plan: Patient is recommended to continue under IVC.
[2019-06-23] MEDS ORDERED: OLANZAPINE 2.5 MG TABLET PO SCH (11:45)
[2019-06-23] MEDS ORDERED: OLANZAPINE 2.5 MG TABLET PO ONE (12:00)
[2019-06-23] MEDS ORDERED: ATOMOXETINE HCL 100 MG PO SCH (14:00)
[2019-06-23] MEDS: DIVALPROEX SODIUM 250 MG TABLET.DR PO SCH ×2 (14:13→21:49)
[2019-06-23] MEDS ORDERED: LISINOPRIL 10 MG TABLET ONE (18:27)
[2019-06-23] MEDS: FLUOXETINE HCL 20 MG CAPSULE PO SCH (18:41)
[2019-06-23] MEDS ORDERED: LISINOPRIL 10 MG TABLET PO ONE (18:42)
[2019-06-23] MEDS: LISINOPRIL 10 MG TABLET PO SCH (18:43)
[2019-06-23] MEDS: OLANZAPINE 2.5 MG TABLET PO SCH (21:48)
[2019-06-23] MEDS: CLONIDINE HCL 0.2 MG TABLET PO SCH (21:49)
[2019-06-23] MEDS: ATORVASTATIN CALCIUM 20 MG TABLET PO SCH (21:49)
[2019-06-24] MEDS ORDERED: LORAZEPAM 1 MG TABLET PO ONE (02:22)
[2019-06-24] MEDS: OXCARBAZEPINE 150 MG TABLET PO SCH (08:58)
--- NOTE | 2019-06-24 10:33 | ER Document Report ---
Doctor's Note Notes: 06/24/19 10:31 I have evaluated this pt. this am and he has no c/o at this time. He feels all of his needs are being met and his physical exam is normal. He is awaiting disposition per mental health.
[2019-06-24] MEDS: ASPIRIN 81 MG TABLET, ENT COATED PO SCH (10:44)
[2019-06-24] MEDS: TAMSULOSIN HCL 0.4 MG CAP.SR.24H PO SCH (10:44)
[2019-06-24] MEDS: AMLODIPINE BESYLATE 10 MG TABLET PO SCH (10:44)
[2019-06-24] MEDS: OLANZAPINE 2.5 MG TABLET PO SCH ×2 (10:45→21:07)
[2019-06-24] MEDS: LISINOPRIL 10 MG TABLET PO SCH (10:45)
[2019-06-24] MEDS: BUSPIRONE HCL 10 MG TABLET PO SCH ×2 (10:47→18:34)
[2019-06-24] MEDS: FLUOXETINE HCL 20 MG CAPSULE PO SCH ×2 (10:47→18:35)
--- NOTE | 2019-06-24 13:38 | PSYCHOLOGICAL NOTE ---
Psych Note - Psych Note Date seen by psych provider: 06/24/19 Time seen by psych provider: 12:10 Psych Note: 49-year-old male with history of bipolar disorder, alcoholism and paranoia presents to the ED by the consulting sales executive's department on IVC paperwork for the reason of being a danger to himself and others. Medication recommendations per [facility]'s contracted psychiatrist Dr Joy BRASHER are as follows Discontinue home medications of strattera and Vivitrol Please add Zyprexa 2.5mg twice daily Please add depakote 250mg twice daily at 2pm and at bedtime Please decrease home medication of Prozac to 20mg twice daily Please decrease home medication of Buspar to 10mg twice daily Please decrease home medication of Trileptal to 600mg every morning for 7 days Please increase home medication of Clondine to 0.2mg every evening at bedtime Impression\plan: Patient is recommended to continue under IVC.
[2019-06-24] MEDS: DIVALPROEX SODIUM 250 MG TABLET.DR PO SCH ×2 (14:45→21:07)
[2019-06-24] MEDS ORDERED: DIPHENHYDRAMINE HCL 50 MG CAPSULE PO ONE (19:12)
[2019-06-24] MEDS: CLONIDINE HCL 0.2 MG TABLET PO SCH (21:06)
[2019-06-24] MEDS: ATORVASTATIN CALCIUM 20 MG TABLET PO SCH (21:07)
[2019-06-25] MEDS: OXCARBAZEPINE 150 MG TABLET PO SCH (07:45)
[2019-06-25] MEDS: OLANZAPINE 2.5 MG TABLET PO SCH ×2 (10:08→22:26)
[2019-06-25] MEDS: BUSPIRONE HCL 10 MG TABLET PO SCH ×2 (10:08→18:15)
[2019-06-25] MEDS: LISINOPRIL 10 MG TABLET PO SCH (10:08)
[2019-06-25] MEDS: AMLODIPINE BESYLATE 10 MG TABLET PO SCH (10:09)
[2019-06-25] MEDS: ASPIRIN 81 MG TABLET, ENT COATED PO SCH (10:09)
[2019-06-25] MEDS: FLUOXETINE HCL 20 MG CAPSULE PO SCH ×2 (10:09→18:16)
[2019-06-25] MEDS: TAMSULOSIN HCL 0.4 MG CAP.SR.24H PO SCH (10:09)
--- NOTE | 2019-06-25 10:15 | ER Document Report ---
Doctor's Note Notes: 06/25/19 10:13 Rounds: Chart reviewed and patient interviewed. Patient very quiet and calm and cooperative. Very well spoken and articulate. Acknowledges he has bipolar disorder and had been drinking alcohol last evening. Chart says he was paranoid and very aggressive. Patient denies being paranoid. He is on various medications but currently is now been switched to Zyprexa, Depakote, and clonidine, the latter of which he has been taking previously. Lab studies are positive for barbiturates and 68 blood alcohol. Patient appears to be medically stable for transfer or discharge. Rafi Rubin MD
[2019-06-25] MEDS: OLANZAPINE 5 MG TABLET PO SCH (11:11)
[2019-06-25] MEDS: NICOTINE 14 MG/24 HR PATCH.TD24 TD SCH (11:12)
--- NOTE | 2019-06-25 11:38 | PSYCHOLOGICAL NOTE ---
Psych Note - Psych Note Date seen by psych provider: 06/25/19 Time seen by psych provider: 09:39 - Evaluation from [id number]. Psych Note: Presenting Problem: IVC, Stroke/CVA January 2019, increased alcohol use since then with mood changes, made HI threats after some altercations regarding teenage daughter, lost son to OD a few years ago and reportedly has not dealt with that grief. Today patient was sitting in the chair next to his bed reading the paper with the TV on. He stated he was doing great. He identified the reason he was in the ED was because :my sold the idea that since my Stroke in January my behavior has been more erratic and their proof, the response Team that my put together in our community, was 4 nights ago when I was an asshole at a restaurant, which may not have been the best way to act but is not illegal." He admitted "I was angry the last 4 days before coming to the ED." He stated "I was pissed off at my after the first night of the [employer] when a bunch of use went to it then out to a local restaurant/bar, I went home, stayed out and was not home at 0400 and come to find out she was in someone's pool, with others some of which we know and some we don't, with her thing on and a T- shirt" He stated "I do not like that and yes it upsets me but I did not threaten her or anyone else." He denied current SI/HI. Patient stated"the stroke did damage by expressive aphasia, vocabulary and ability to retrieve words but not a behavior change." Diagnosis: Stroke/CVA in January 2019 (concern for neurodegenerative processes which include behavior changes) 303.90 (F10.20) Alcohol Use Disorder, Severe 300.00 (F41.9) Unspecified Anxiety Disorder by Hx per patient 296.80 (F31.9) Unspecified Bipolar and Related Disorder by Hx per medication regimen Medication recommendation made by the psychiatric medical provider, Dr. Joy MD., includes: Change Zyprexa to 5MG in the morning for mood stabilization/impulse control Zyprexa 2.5MG at night for mood stabilization/impulse control Nicotine Patch Impression/Plan: Recommendation to maintain IVC given behavioral issues last evening, recent Stroke/CVA (January 2019) which can cause behavioral and cognitive changes, Hx of mood and anxiety issues, increased alcohol use and the admitted anger patient reported the 4 days prior to ED arrival. Consulted with Dr. Gómez regarding the management and care of patient. ED Physician in agreement with recommendations.
[2019-06-25] MEDS: DIVALPROEX SODIUM 250 MG TABLET.DR PO SCH ×2 (14:23→22:25)
[2019-06-25] MEDS: CLONIDINE HCL 0.2 MG TABLET PO SCH (22:24)
[2019-06-25] MEDS: ATORVASTATIN CALCIUM 20 MG TABLET PO SCH (22:25)
[2019-06-26] MEDS ORDERED: DIPHENHYDRAMINE HCL 50 MG CAPSULE PO ONE (00:52)
[2019-06-26] MEDS: OXCARBAZEPINE 150 MG TABLET PO SCH (09:44)
[2019-06-26] MEDS: ASPIRIN 81 MG TABLET, ENT COATED PO SCH (09:45)
[2019-06-26] MEDS: FLUOXETINE HCL 20 MG CAPSULE PO SCH ×2 (09:45→17:37)
[2019-06-26] MEDS: BUSPIRONE HCL 10 MG TABLET PO SCH ×2 (09:45→17:37)
[2019-06-26] MEDS: NICOTINE 14 MG/24 HR PATCH.TD24 TD SCH (09:45)
[2019-06-26] MEDS: AMLODIPINE BESYLATE 10 MG TABLET PO SCH (09:45)
[2019-06-26] MEDS: TAMSULOSIN HCL 0.4 MG CAP.SR.24H PO SCH (09:45)
[2019-06-26] MEDS: OLANZAPINE 5 MG TABLET PO SCH (09:45)
[2019-06-26] MEDS: LISINOPRIL 10 MG TABLET PO SCH (09:45)
--- NOTE | 2019-06-26 10:24 | ER Document Report ---
Doctor's Note Notes: 06/26/19 10:22 Rounds: Chart reviewed and patient interviewed. Patient is very cooperative and pleasant but wishes to be discharged. He does not feel he is a risk of danger to himself or anyone else. Patient and his l and 3 daughters live together. Patient says he understands that he drinks alcohol, but does not feel that he is a risk of danger to any of the people in the household. Vital signs, blood pressure elevated. Had not had his morning blood pressure medicines when the blood pressure was taken. Patient appears to be medically stable for transfer or discharge. Rafi Rubin MD
[2019-06-26] MEDS: DIVALPROEX SODIUM 250 MG TABLET.DR PO SCH ×2 (15:30→21:11)
[2019-06-26] MEDS: ATORVASTATIN CALCIUM 20 MG TABLET PO SCH (21:10)
[2019-06-26] MEDS: OLANZAPINE 2.5 MG TABLET PO SCH (21:10)
[2019-06-26] MEDS: CLONIDINE HCL 0.2 MG TABLET PO SCH (21:11)
[2019-06-27] MEDS: OXCARBAZEPINE 150 MG TABLET PO SCH (07:36)
[2019-06-27] MEDS: OLANZAPINE 5 MG TABLET PO SCH (07:36)
[2019-06-27 08:27] VITALS: BP 141/74
[2019-06-27] MEDS: TAMSULOSIN HCL 0.4 MG CAP.SR.24H PO SCH (09:28)
[2019-06-27] MEDS: AMLODIPINE BESYLATE 10 MG TABLET PO SCH (09:28)
[2019-06-27] MEDS: ASPIRIN 81 MG TABLET, ENT COATED PO SCH (09:28)
[2019-06-27] MEDS: BUSPIRONE HCL 10 MG TABLET PO SCH (09:28)
[2019-06-27] MEDS: LISINOPRIL 10 MG TABLET PO SCH (09:29)
[2019-06-27] MEDS: FLUOXETINE HCL 20 MG CAPSULE PO SCH (09:29)
[2019-06-27] MEDS: NICOTINE 14 MG/24 HR PATCH.TD24 TD SCH (09:29)
--- NOTE | 2019-06-27 11:42 | ER Document Report ---
Doctor's Note Notes: 06/27/19 11:40 Patient continues to deny suicidal ideation, states that he was never suicidal despite presenting complaint and statements from his stating that he was suicidal. Patient has been accepted to [facility], continues to meet general statute criteria for involuntary commitment. Otherwise has no complaints. Patient will be transferred it via [facility] department. They are at bedside at this time. Patient is stable for transport. Generalslightly confrontational but otherwise cooperative Respiratoryno acute distress Psychconfrontational and mild paranoia Skinno lesions noted
== END 2019-06-27 11:40 ==
LOC: ER 14:19
DX: R45.850 Homicidal ideations (principal); I10 Essential (primary) hypertension; F31.9 Bipolar disorder, unspecified; F10.20 Alcohol dependence, uncomplicated; F22 Delusional disorders; Z79.899 Other long term (current) drug therapy
CPT/HCPCS: 93005; 99285; 36415; 80307 ×4; 85025; 80053; 81001; 93010; J3490 ×4

== ENCOUNTER 2019-07-19 19:50 | Emergency (ER) | payer BC, MEDICARE ==
--- NOTE | 2019-07-19 20:16 | ER Document Report ---
ED Psych Disorder / Suicide - General Chief Complaint: Possible Overdose Stated Complaint: POSSIBLE OVERDOSE/TOXICITY Time Seen by Provider: 07/19/19 20:10 Primary Care Provider: ANA AWAD MD [Primary Care Provider] - Follow up as needed Information source: Patient Notes: HISTORY OF PRESENT ILLNESS: Patient is a 49-year-old male with a past medical history of anxiety, bipolar disorder, stroke, chronic substance abuse, and hypertension who presents with possible accidental overdose earlier today while intoxicated. Patient has a similar history in the past of overdosing accidentally on his normal medications while intoxicated. Patient reports that he drinks daily "about a fifth of liquor." Onset: Prior to arrival Provocation: None Quality: None Radiation: None Severity: Moderate Timing: Constant SI/HI: Unknown Hallucinations: None Current therapist: Unknown Current treatment: Multiple medications at home REVIEW OF SYSTEMS: CONSTITUTIONAL : Denies fever or chills, no sweats. Denies recent illness. EENT: Denies eye, ear, throat, or mouth pain or symptoms. Denies nasal or sinus congestion. CARDIOVASCULAR: Denies chest pain. RESPIRATORY: Denies cough, cold, or chest congestion. Denies shortness of breath, difficulty breathing, or wheezing. GASTROINTESTINAL: Denies abdominal pain. Denies nausea, vomiting, or diarrhea. Denies constipation. GENITOURINARY: Denies difficulty urinating, painful urination, burning, frequency, or blood in urine. MUSCULOSKELETAL: Denies neck or back pain or joint pain or swelling. SKIN: Denies rash or skin lesions. HEMATOLOGIC : Denies easy bruising or bleeding. LYMPHATIC: Denies swollen, enlarged glands. NEUROLOGICAL: Denies altered mental status or loss of consciousness. Denies headache. Denies weakness or paralysis or loss of use of either side. Denies problems with gait or speech. Denies sensory or motor loss. PSYCHIATRIC: Positive for alcohol abuse. Denies suicidal/homicidal thoughts. Denies anxiety or stress or depression. All other systems reviewed and negative. PHYSICAL EXAMINATION: GENERAL: Intoxicated but well-appearing, well-nourished and in no acute distress. HEAD: Atraumatic, normocephalic. No scalp deformity, depression, or crepitance. EYES: Pupils are 3 mm and equal/round/reactive to light, extraocular movements intact, sclera anicteric, conjunctiva are normal. ENT: Nares patent bilaterally, oropharynx clear without exudates or palatal petechia. Moist mucous membranes. No tonsil hypertrophy. NECK: Normal range of motion, supple without lymphadenopathy. LUNGS: Breath sounds present, equal, and clear to auscultation bilaterally. No wheezes, rales, or rhonchi. HEART: Regular rate and rhythm without murmurs, rubs, or gallops. 2+ peripheral pulses. Normal capillary refill. ABDOMEN: Soft, nontender, nondistended. Normoactive bowel sounds. No guarding, no rebound. No masses appreciated. BACK: Normal contour, no midline tenderness. Rectal exam deferred. GENITAL/PELVC: Deferred. EXTREMITIES: Normal range of motion, no pitting or edema. No cyanosis. NEUROLOGICAL: No focal neurological deficits. Moves all extremities spontaneously and on command. PSYCH: Somewhat anxious mood, normal affect. No suicidal thoughts/ideations. No homicidal thoughts/ideations. No hallucinations. SKIN: Warm, dry, normal turgor, no rashes or lesions noted. ASSESSMENT AND PLAN: This patient is a 49-year-old male who presents with possible accidental overdose versus intentional overdose while intoxicated.. 1. Will obtain medical clearance, CT head, and involuntarily committed for inpatient treatment. 2. Will observe in the emergency department. TRAVEL OUTSIDE OF THE [place] IN LAST 30 DAYS: No - HPI Patient complains to provider of: Overdose Onset: Just prior to arrival Onset was: Sudden Quality of pain: No pain Severity: Mild Pain Level: Denies Suicide Risk Factors: Bipolar, Chronic illness, Depressed, Male, Substance abuse Suicide Attempt Method: Overdose Overdose of: Other - Multiple medications, please see nursing note Injury to: No: Generalized, Abdomen, Ankle, Back, Breast, Buttocks, Chest, Elbow, Epigastric, Flank, Face, Finger, Foot, Hand, Head, Hip, Knee, Leg, Lower extremity, Mouth, Neck, Pelvic, Penis, Perineum, Rectum, Shoulder, Testicle, Thigh, Throat, Trunk, Upper extremity, Vagina, Wrist Normal mood: Yes Associated symptoms: Normal affect, Normal mood, Anxious Similar symptoms previously: Yes Recently seen / treated by doctor: No - Related Data Allergies/Adverse Reactions: No Known Allergies Allergy (Verified 01/18/19 19:53) Past Medical History - General Information source: Patient, Relative - Social History Smoking Status: Former Smoker Chew tobacco use (# tins/day): No Frequency of alcohol use: Heavy Drug Abuse: None Lives with: Family Family History: Reviewed & Not Pertinent, COPD, Malignancy - Prostate cancer Patient has suicidal ideation: No Patient has homicidal ideation: No - Past Medical History Cardiac Medical History: Reports: Hx Hypertension - MEDICATED Denies: Hx Coronary Artery Disease, Hx DVT, Hx Heart Attack, Hx Pulmonary Embolism, Hx Heart Murmur Pulmonary Medical History: Reports: None Denies: Hx Asthma, Hx COPD, Hx Tuberculosis EENT Medical History: Reports: None Neurological Medical History: Reports: None. Denies: Hx Cerebrovascular Accident, Hx Seizures Endocrine Medical History: Reports: None. Denies: Hx Diabetes Mellitus Type 1, Hx Diabetes Mellitus Type 2, Hx Hyperthyroidism, Hx Hypothyroidism Renal/ Medical History: Reports: None. Denies: Hx Peritoneal Dialysis Malignancy Medical History: Reports None GI Medical History: Reports: None. Denies: Hx Cirrhosis, Hx Crohn's Disease, Hx Hepatitis, Hx Hiatal Hernia, Hx Ulcer, Hx Ulcerative Colitis Musculoskeletal Medical History: Reports None, Denies Hx Arthritis, Denies Hx Gout Skin Medical History: Reports None, Denies Hx Eczema, Denies Hx Psoriasis Psychiatric Medical History: Reports: Hx Bipolar Disorder, Hx Depression Traumatic Medical History: Reports: None Infectious Medical History: Reports: None. Denies: Hx Hepatitis Past Surgical History: Reports: Hx Tonsillectomy - With adenoidectomy, Other - Aime-en-Y procedure, skin grafting for herrera, EAC dilatation bilaterally. Denies: Hx Open Heart Surgery, Hx Pacemaker - Immunizations Immunizations up to date: Yes Review of Systems - Review of Systems Constitutional: No symptoms reported EENT: No symptoms reported Cardiovascular: No symptoms reported Respiratory: No symptoms reported Gastrointestinal: No symptoms reported Genitourinary: No symptoms reported Male Genitourinary: No symptoms reported Musculoskeletal: No symptoms reported Skin: No symptoms reported Hematologic/Lymphatic: No symptoms reported Neurological/Psychological: See HPI, Anxiety, Suicidal ideation, Other - Possible accidental overdose -: Yes All other systems reviewed and negative Physical Exam - Vital signs Vitals: Resp Pulse Ox 14 96 07/19/19 20:00 07/19/19 20:00 Interpretation: Normal - General General appearance: Appears well, Alert - HEENT Head: Normocephalic, Atraumatic Eyes: Normal Pupils: PERRL - Respiratory Respiratory status: No respiratory distress Chest status: Nontender Breath sounds: Normal Chest palpation: Normal - Cardiovascular Rhythm: Regular Heart sounds: Normal auscultation Murmur: No - Abdominal Inspection: Normal Distension: No distension Bowel sounds: Normal Tenderness: Nontender Organomegaly: No organomegaly - Back Back: Normal, Nontender - Extremities General upper extremity: Normal inspection, Nontender, Normal color, Normal ROM, Normal temperature General lower extremity: Normal inspection, Nontender, Normal color, Normal ROM, Normal temperature, Normal weight bearing. No: Billy's sign - Neurological Neuro grossly intact: Yes Cognition: Normal Orientation: AAOx4 [place] Coma Scale Eye Opening: Spontaneous Joan Coma Scale Verbal: Oriented Str[place] Coma Scale Motor: Obeys Commands Strandquist Coma Scale Total: 15 Speech: Normal Motor strength normal: LUE, RUE, LLE, RLE Sensory: Normal - Psychological Associated symptoms: Normal affect, Normal mood - Skin Skin Temperature: Warm Skin Moisture: Dry Skin Color: Normal Course - Re-evaluation Re-evalutation: 07/20/19 00:59 Patient has been medically cleared. Blood work is unremarkable and CT head shows no acute pathology. I have counseled the patient and his about drinking cessation, as well as taking his prescribed medications including his multivitamins given his chronic alcoholism. The patient's feels comfortable taking the patient home and states they will follow-up with his physicians. Will discharge the patient home with strict return precautions and follow-up with primary physician. All results were explained to and discussed with the patient and his , and all questions addressed and answered for the patient. The patient and his voice both understanding and agreeing with the plan. - Vital Signs Vital signs: Temp Pulse Resp BP Pulse Ox 98.6 F 20 154/73 H 95 07/19/19 20:42 07/19/19 23:00 07/19/19 21:31 07/20/19 00:00 - Laboratory Result Diagrams: 07/19/19 20:05 07/19/19 20:05 Laboratory results interpreted by me: 07/19/19 07/19/19 20:05 20:05 RDW 16.4 H Glucose 191 H Total Bilirubin < 0.1 L Salicylates < 1.0 L Acetaminophen < 10 L - Diagnostic Test Radiology reviewed: Image reviewed, Reports reviewed - EKG Interpretation by Me EKG shows normal: Sinus rhythm Rate: Bradycardia Rhythm: NSR [place]/QRS: No: Right axis deviation, Left axis deviation, RBBB, LBBB, IVCD, LAHB/LAFB, LPHB/LPFB, Bifasicular block Voltage: No: Increased voltage, Consistant with LVH, Decreased voltage, Throughout, Limb leads P Waves: No: FABIOLA, LAE, Absent, AV Dissociation, Other Heart block present: No: 1st Degree, Mobitz 1, Mobitz 2, CHB (3rd degree block) When compared to previous EKG there are: No significant change Discharge - Discharge Clinical Impression: Alcohol abuse, Bipolar 1 disorder, depressed Condition: Good Disposition: HOME, SELF-CARE Instructions: Chronic Alcoholism ([facility]) Additional Instructions: You have been evaluated in the Emergency Department for an accidental drug overdose as well as alcohol intoxication. While here, you had blood work with a head CT that were unremarkable and it is now safe to be discharged home. Please follow-up with your primary physician as instructed in 1 week to be rechecked. Return to the Emergency Department if you experience confusion, difficulty walking, weakness, or any other concerning symptoms. Referrals: ANA AWAD MD [Primary Care Provider] - Follow up as needed Print Language: Turkmen
[2019-07-19] MEDS ORDERED: NORMAL SALINE 1000 ML 1,000 ML IV ONE (21:01)
[2019-07-19 21:13] LABS: ABSOLUTE EOSINOPHILS # (AUTO) 0.1 10^3/uL (0.0-0.6); ABSOLUTE LYMPHOCYTES (AUTO) 1.4 10^3/uL (0.5-4.7); ABSOLUTE MONOCYTES (AUTO) 0.7 10^3/uL (0.1-1.4); ABSOLUTE NEUT (AUTO) 6.2 10^3/uL (1.7-8.2); BASOPHILS % (AUTO) 0.5 % (0-2); EOSINOPHILS % (AUTO) 1.6 % (0-6); HEMATOCRIT 42.6 % (37.9-51.0); HEMOGLOBIN 14.1 g/dL (13.5-17.0); LYMPHOCYTES % (AUTO) 16.7 % (13-45); MEAN CORPUSCULAR HGB CONC 33.1 g/dL (32.0-36.0); MEAN CORPUSCULAR VOLUME 85 fl (80-97); MONOCYTES % (AUTO) 8.1 % (3-13); PLATELET COUNT 225 10^3/uL (150-450); RED BLOOD COUNT 5.04 10^6/uL (4.35-5.55); RED CELL DISTRIBUTION WIDTH 16.4 % (11.5-14.0); SEGMENTED NEUTROPHILS % (AUTO) 73.1 % (42-78); TOTAL CELLS COUNTED % (AUTO) 100 %; WHITE BLOOD COUNT 8.5 10^3/uL (4.0-10.5)
[2019-07-19 21:17] LABS: APPEARANCE,URINE CLEAR; BILIRUBIN,URINE NEGATIVE (NEGATIVE); COLOR,URINE STRAW; GLUCOSE, URINE NEGATIVE (NEGATIVE); KETONES,URINE NEGATIVE (NEGATIVE); LEUKOCYTE ESTERASE,URINE NEGATIVE (NEGATIVE); NITRITE,URINE NEGATIVE (NEGATIVE); PROTEIN,URINE NEGATIVE (NEGATIVE); URINE SPECIFIC GRAVITY 1.006; UROBILINOGEN,URINE NEGATIVE mg/dL (<2.0)
[2019-07-19 21:26] LABS: ALBUMIN 4.3 g/dL (3.5-5.0); ALCOHOL 184 mg/dL (NONE DETECTED); ALKALINE PHOSPHATASE 69 U/L (38-126); ANION GAP 12 (5-19); ASPARTATE AMINO TRANSFERASE 44 U/L (17-59); BLOOD UREA NITROGEN 11 mg/dL (7-20); CALCIUM 9.7 mg/dL (8.4-10.2); CARBON DIOXIDE 26 mmol/L (22-30); CHLORIDE 106 mmol/L (98-107); GLUCOSE 191 mg/dL (75-110); POTASSIUM 3.8 mmol/L (3.6-5.0); TOTAL PROTEIN 7.1 g/dL (6.3-8.2)
[2019-07-19 21:27] LABS: ACETAMINOPHEN < 10 ug/mL (10-30); BILIRUBIN,TOTAL < 0.1 mg/dL (0.2-1.3); SALICYLATE < 1.0 mg/dL (2.0-20.0)
[2019-07-19 21:40] LABS: URINE AMPHETAMINES SCREEN NEGATIVE; URINE BARBITURATES SCREEN NEGATIVE; URINE BENZODIAZEPINES SCREEN NEGATIVE; URINE COCAINE SCREEN NEGATIVE; URINE MARIJUANA (THC) SCREEN NEGATIVE; URINE METHADONE SCREEN NEGATIVE; URINE PHENCYCLIDINE SCREEN NEGATIVE
--- NOTE | 2019-07-19 22:26 | RADIOLOGY REPORT (SQ) ---
EXAM DESCRIPTION: CT HEAD WITHOUT IV CONTRAST COMPLETED DATE/TME: 07/19/2019 21:01 CLINICAL HISTORY: 49 years, Male, Altered mental status COMPARISON: 01/18/2019 CT TECHNIQUE: 210 Images stored on PACS. All CT scanners at this facility use dose modulation, iterative reconstruction, and/or weight based dosing when appropriate to reduce radiation dose to as low as reasonably achievable (ALARA). [facility]: Dose Right [facility]: CareDose [facility]: Dose Right [facility]: Teradose 4D [facility]: Zytoprotec LIMITATIONS: None. FINDINGS: The globes are intact. Polyp of the left maxillary sinus. No displaced or depressed skull fracture. No intra or extra-axial hemorrhage. CT is limited for evaluation of acute infarct. No CT evidence for large or territorial acute infarct. Remote lacunar infarct left basal ganglia. No mass or midline shift. IMPRESSION: Remote lacunar infarct left basal ganglia. No acute intracranial abnormality TECHNICAL DOCUMENTATION: Quality ID # [id number]: Final reports with documentation of one or more dose reduction techniques (e.g., Automated exposure control, adjustment of the mA and/or kV according to patient size, use of iterative reconstruction technique) copyright 2010 [employer]- All Rights Reserved
[2019-07-20 01:23] VITALS: BP 155/90
--- NOTE | 2019-07-20 14:23 | EKG REPORT ---
SEVERITY:- BORDERLINE ECG - SINUS BRADYCARDIA CONSIDER ANTERIOR INFARCT BORDERLINE T ABNORMALITIES, INFERIOR LEADS : Confirmed by: Karoline Jenkins 20-Jul-2019 14:22:24
== END 2019-07-20 01:23 | disposition home or self-care (01) ==
LOC: ER 19:50
DX: F10.229 Alcohol dependence with intoxication, unspecified (principal); F31.9 Bipolar disorder, unspecified; F41.9 Anxiety disorder, unspecified; I10 Essential (primary) hypertension; R00.1 Bradycardia, unspecified; Z87.891 Personal history of nicotine dependence
CPT/HCPCS: 93005; 99284; 96360; 36415; 80307 ×4; 85025; 80053; 81001; 70450; 93010; J7030